=== PATIENT | female | born 1930 | race Caucasian/White ===

== ENCOUNTER 2017-04-13 14:26 | Inpatient (IN) | payer MEDICARE ==
[~2017-04-13] VITALS: Ht 162.6 cm; Wt 75.0 kg
[2017-04-13 14:49] VITALS: BP 148/81; PULSE 69; RESP 16; TEMP 98.6; O2SAT 100
[2017-04-13] MEDS ORDERED: SODIUM CHLORID 0.9% 500 ML INJ 500 ML IV ONE (15:00)
[2017-04-13] MEDS ORDERED: SODIUM CHLORIDE 0.9% FLUSH 10 ML FLUSH IVF PRN (15:00)
--- NOTE | 2017-04-13 15:10 | PD ---
HPI Chief Complaint: Pain: Acute or Chronic Time Seen by Provider: 14:59 Travel History International Travel<30 days: Yes Contact w/Intl Traveler<30days: [place] of Country Traveled to: Traveled here from [place] Traveled to known affect area: Yes History of Present Illness HPI 86-year-old Irish female presents the emergency department via EMS with question of chest discomfort, shortness of breath, an episode of vomiting times one. Patient is a type II diabetic on metformin. She denies fever, chills, or abdominal pain. She denies urinary issues. EMS noted that her heart rate was 42 in the rig, and she was given atropine IV with improvement of her rate with what appeared to be an irregular rhythm. Patient has received a total of 900 mL of normal saline bolus. She is alert and oriented this time. She states her pain is located mainly in the right shoulder. She describes it as a 7 out of 10. Further history is difficult to obtain. She has no known drug allergies. Patient was seen in conjunction with Jose Miguel Maldonado PA-C last the patient her history in more detail in [place]ese. Patient states she has a long-standing history of bradycardia, and was recommended to have a pacemaker in [place] but she refused at that time. She states her pain is about a 5/10 which she describes as an ache in the pericardium. She has had some nausea and vomiting 1. The patient did have diarrhea a little bit this morning. She has no previous cardiac history other than the bradycardia. Patient denies urinary symptoms or significant abdominal pain. PFSH Past Medical History ?: Not Social History Alcohol Use: No Tobacco Use: No Substance Use: No Allergies-Medications (Allergen,Severity, Reaction): Coded Allergies: No Known Allergies (Unverified , 04/13/17) Review of Systems Except as stated in HPI: all other systems reviewed are Neg General / Constitutional: No: Fever Eyes: No: Visual changes HENT: No: Headaches Cardiovascular: Positive: Chest Pain or Discomfort, Other (bradycardia), No: Diaphoresis Respiratory: No: Shortness of Breath Gastrointestinal: Positive: Nausea, Vomiting (times one.), No: Abdominal Pain Genitourinary: No: Dysuria Musculoskeletal: No: Pain Skin: No Rash Neurologic: No: Weakness Psychiatric: No: Depression Endocrine: No: Polydipsia Hematologic/Lymphatic: No: Easy Bruising Physical Exam Narrative GENERAL: Patient appears in no acute distress SKIN: Warm and dry. Normal color. Normal turgor. HEAD: Atraumatic. Normocephalic. EYES: Pupils equal and round. No scleral icterus. No injection or drainage. ENT: No nasal bleeding or discharge. Mucous membranes pink and moist. Pharynx is clear. Airways patent. NECK: Trachea midline. No JVD. Supple nontender. CARDIOVASCULAR: Somewhat irregular rate and rhythm. No murmurs appreciated. RESPIRATORY: No accessory muscle use. Clear to auscultation. Breath sounds equal bilaterally. GASTROINTESTINAL: Abdomen soft, non-tender, nondistended. Hepatic and splenic margins not palpable. MUSCULOSKELETAL: Extremities without clubbing, cyanosis, or edema. No obvious deformities. NEUROLOGICAL: Awake and alert. No obvious cranial nerve deficits. Motor grossly within normal limits. Five out of 5 muscle strength in the arms and legs. Normal speech. PSYCHIATRIC: Appropriate mood and affect; insight and judgment normal. Data Data Last Documented VS Vital Signs Date Time Temp Pulse Resp B/P Pulse Ox O2 Delivery O2 Flow Rate FiO2 04/13/17 16:50 47 16 152/69 100 Room Air 04/13/17 14:49 98.6 Orders Electrocardiogram (04/13/17 14:49) Complete Blood Count With Diff (04/13/17 14:49) Comprehensive Metabolic Panel (04/13/17 14:49) Magnesium (Mg) (04/13/17 14:49) Phosphorus (Po4) (04/13/17 14:49) Beta Hydroxybutyrate (Acetone) (04/13/17 14:49) Osmolality,Serum (04/13/17 14:49) Lactic Acid (04/13/17 14:49) Urinalysis - C+S If Indicated (04/13/17 14:49) Chest, Single Ap (04/13/17 14:49) Ecg Monitoring (04/13/17 14:49) Iv Access Insert/Monitor (04/13/17 14:49) Oximetry (04/13/17 14:49) NPO (04/13/17 14:49) Sodium Chloride 0.9% Flush (Ns Flush) (04/13/17 15:00) Troponin I (04/13/17 14:49) Lipase (04/13/17 14:49) Sodium Chlorid 0.9% 500 Ml Inj (Ns 500 M (04/13/17 15:00) Ondansetron Inj (Zofran Inj) (04/13/17 15:15) Labs Laboratory Tests Test 04/13/17 15:00 White Blood Count 8.1 TH/MM3 Red Blood Count 4.71 MIL/MM3 Hemoglobin 13.7 GM/DL Hematocrit 41.0 % Mean Corpuscular Volume 86.9 FL Mean Corpuscular Hemoglobin 29.0 PG Mean Corpuscular Hemoglobin 33.4 % Concent Red Cell Distribution Width 14.3 % Platelet Count 170 TH/MM3 Mean Platelet Volume 11.2 FL Neutrophils (%) (Auto) 77.9 % Lymphocytes (%) (Auto) 16.9 % Monocytes (%) (Auto) 4.0 % Eosinophils (%) (Auto) 0.4 % Basophils (%) (Auto) 0.8 % Neutrophils # (Auto) 6.3 TH/MM3 Lymphocytes # (Auto) 1.4 TH/MM3 Monocytes # (Auto) 0.3 TH/MM3 Eosinophils # (Auto) 0.0 TH/MM3 Basophils # (Auto) 0.1 TH/MM3 CBC Comment DIFF FINAL Differential Comment Sodium Level 136 MEQ/L Potassium Level 4.5 MEQ/L Chloride Level 101 MEQ/L Carbon Dioxide Level 27.5 MEQ/L Anion Gap 8 MEQ/L Blood Urea Nitrogen 18 MG/DL Creatinine 0.65 MG/DL Estimat Glomerular Filtration 87 ML/MIN Rate Random Glucose 297 MG/DL Serum Osmolality 299 MOSM/KG Lactic Acid Level 1.3 mmol/L Calcium Level 8.5 MG/DL Phosphorus Level 3.3 MG/DL Magnesium Level 1.7 MG/DL Total Bilirubin 0.3 MG/DL Aspartate Amino Transf 12 U/L (AST/SGOT) Alanine Aminotransferase 15 U/L (ALT/SGPT) Alkaline Phosphatase 79 U/L Troponin I LESS THAN 0.02 NG/ML Total Protein 6.7 GM/DL Albumin 3.2 GM/DL Lipase 93 U/L B-Hydroxybutyrate 0.16 MMOL/L [facility] Medical Decision Making Medical Screen Exam Complete: Yes Emergency Medical Condition: Yes Differential Diagnosis Hyperglycemia. Electrolyte imbalance. Bradycardia. Cardiac syndrome. MA. Pancreatitis. Nausea and vomiting. Narrative Course Patient appears medically stable at time of exam. Labs ordered including CBC, CMP, lipase, lactic acid, magnesium and phosphorus, urinalysis. EKG is performed as well as chest x-ray. Patient is given 500 mL normal saline bolus as well as Zofran 4 mg IV. Chest x-ray shows no acute findings. EKG shows sinus rhythm with first AV block with a rate of [address] changes are noted. This is reviewed with Dr. Browning. 1300 hrs., patient's heart rate is noted to be 48 bpm and regular. She is not complaining of any symptoms at this time. Labs are reviewed showing a blood sugar of 279. Patient has not however in ketoacidosis. Labs are otherwise unremarkable. Patient is discussed with Dr. Browning feels the patient should be admitted for further cardiac workup, and possible pacemaker placement per gunner's mate m. 1700 hrs. call was placed to the hospitalist for admission. Diagnosis Primary Impression: Chest pain Qualified Code: R07.9 - Chest pain, unspecified type Additional Impressions: Bradycardia Hyperglycemia Condition: Stable Aroldo Pardo Apr 13, 2017 15:10
[2017-04-13 15:13] VITALS: O2SAT 100
[2017-04-13] MEDS ORDERED: ONDANSETRON HCL 4 MG/2 ML VIAL IV PUSH ONE (15:15)
--- NOTE | 2017-04-13 15:33 | RADRPT ---
EXAM DATE/TIME: 04/13/2017 15:04 [place] COMPARISON: No previous studies available for comparison. INDICATIONS : Vomiting, low blood pressure, chest pain. MEDICAL HISTORY : None. SURGICAL HISTORY : None. ENCOUNTER: Initial ACUITY: 1 day PAIN SCORE: 2/10 LOCATION: Bilateral chest FINDINGS: A single view of the chest demonstrates the lungs to be symmetrically aerated without evidence of mas s, infiltrate or effusion. The cardiomediastinal contours are unremarkable. Osseous structures are intact. CONCLUSION: No acute disease. Sergio Bowen Jr., MD on April 13, 2017 at 15:31 Board Certified Radiologist. This report was verified electronically.
[2017-04-13 16:05] LABS: AUTOMATED NEUTROPHIL # 6.3 TH/MM3 (1.8-7.7); BASOPHIL # 0.1 TH/MM3 (0-0.2); BASOPHIL % 0.8 % (0.0-2.0); EOSINOPHIL % 0.4 % (0.0-4.0); HEMO FLAGS DIFF FINAL; LYMPH % 16.9 % (9.0-44.0); LYMPHOCYTE # 1.4 TH/MM3 (1.0-4.8); MEAN CELL VOLUME 86.9 FL (80.0-100.0); MEAN CORPUSCULAR HGB CONC 33.4 % (32.0-36.0); NEUT % 77.9 % (16.0-70.0); PLATELET COUNT 170 TH/MM3 (150-450); RED BLOOD COUNT 4.71 MIL/MM3 (4.00-5.30); RED CELL DISTRIBUTION WIDTH 14.3 % (11.6-17.2); WHITE BLOOD COUNT 8.1 TH/MM3 (4.0-11.0)
[2017-04-13 16:37] LABS: ALT (GPT) 15 U/L (10-53); ANION GAP 8 MEQ/L (5-15); AST (GOT) 12 U/L (15-37); BICARBONATE 27.5 MEQ/L (21.0-32.0); BLOOD UREA NITROGEN 18 MG/DL (7-18); CHLORIDE 101 MEQ/L (98-107); GLOMERULAR FILTRATION RATE 87 ML/MIN (>89); MAGNESIUM 1.7 MG/DL (1.5-2.5); POTASSIUM 4.5 MEQ/L (3.5-5.1); SODIUM (NA) 136 MEQ/L (136-145)
[2017-04-13 16:40] LABS: ALKALINE PHOSPHATASE 79 U/L (45-117); BETA-HYDROXYBUTYRATE 0.16 MMOL/L (0.00-0.39); TOTAL BILIRUBIN ADULT 0.3 MG/DL (0.2-1.0)
[2017-04-13 16:50] VITALS: BP 152/69; PULSE 47; RESP 16; O2SAT 100
[2017-04-13 18:26] VITALS: BP 143/77; PULSE 50; RESP 16; O2SAT 100
[2017-04-13] MEDS ORDERED: NALOXONE HCL 0.4 MG/ML AMP IV PRN ×2 (18:45)
[2017-04-13] MEDS ORDERED: ACETAMINOPHEN 325 MG TAB PO PRN (18:45)
[2017-04-13] MEDS ORDERED: RESP: ALBUTEROL 2.5 MG/IPRATROPIUM 0.5 MG NEB (PRN) NEB (18:45)
[2017-04-13] MEDS ORDERED: MAGNESIUM HYDROXIDE SUSP 30 ML CUP PO PRN (18:45)
[2017-04-13] MEDS ORDERED: TEMAZEPAM 15 MG CAP PO PRN (18:45)
[2017-04-13] MEDS ORDERED: DEXTROSE 50% IN WATER 50 ML VIAL(D50) IV PRN (18:45)
[2017-04-13] MEDS ORDERED: GLUCAGON 1 MG/ML VIAL OTHER PRN (18:45)
[2017-04-13] MEDS ORDERED: SODIUM CHLORIDE 0.9% FLUSH 10 ML FLUSH IV FLUSH PRN (18:45)
--- NOTE | 2017-04-13 18:49 | HHI.HP ---
[facility] No Primary Care Physician Admission Diagnosis Chest Pain/Bradycardia/Hyperglycemia Diagnoses: (1) Bradycardia (2) Chest pain (3) DM (diabetes mellitus) Chief Complaint: Chest pain Travel History International Travel<30 Days: Yes Contact w/Intl Traveler <30 Da: Yes Name of Country Traveled to: [place] Traveled to Known Affected Are: Yes History of Present Illness 86-year-old female was brought to the ED by EMS for evaluation of chest discomfort for as well as shortness of breath. Patient was noted at a time to have a heart rate of 42 for which she was given atropine IV 1. She described her chest to be located mainly to the right shoulder and 7/10 in intensity. She has a long-standing history of bradycardia for which about a month ago while patient was in [place] a recommendation of pacemaker placement was advised to which patient refused a time. She also presented initially with nausea and vomiting which resolved. Per EMR, patient had one episode of diarrhea. She currently denies any chest pain or abdominal pain. Review of Systems Except as stated in HPI: all other systems reviewed are Neg Past Family Social History Past Medical History Diabetes type 2 History bradycardia Past Surgical History No previous surgery Reported Medications Metformin Allergies: Coded Allergies: No Known Allergies (Unverified , 04/13/17) Family History Denies any family history of heart disease Social History Alcohol Use: No Tobacco Use: No Substance Use: No Physical Exam Vital Signs Vital Signs Date Time Temp Pulse Resp B/P Pulse Ox O2 Delivery O2 Flow Rate FiO2 04/13/17 18:26 50 16 143/77 100 Room Air 04/13/17 16:50 47 16 152/69 100 Room Air 04/13/17 15:13 100 04/13/17 14:49 98.6 69 16 148/81 100 Physical Exam GENERAL: This is a well-nourished, well-developed patient, in no apparent distress. SKIN: No rashes, ecchymoses or lesions. Cool and dry. HEAD: Atraumatic. Normocephalic. No temporal or scalp tenderness. EYES: Pupils equal round and reactive. Extraocular motions intact. No scleral icterus. No injection or drainage. ENT: Nose without bleeding, purulent drainage or septal hematoma. Throat without erythema, tonsillar hypertrophy or exudate. Uvula midline. Airway patent. NECK: Trachea midline. No JVD or lymphadenopathy. Supple, nontender, no meningeal signs. CARDIOVASCULAR: Regular rate and rhythm without murmurs, gallops, or rubs. RESPIRATORY: Clear to auscultation. Breath sounds equal bilaterally. No wheezes , rales, or rhonchi. GASTROINTESTINAL: Abdomen soft, non-tender, nondistended. No hepato-splenomegaly , or palpable masses. No guarding. MUSCULOSKELETAL: Extremities without clubbing, cyanosis, or edema. No joint tenderness, effusion, or edema noted. No calf tenderness. Negative Homans sign bilaterally. NEUROLOGICAL: Awake and alert. Cranial nerves II through XII intact. Motor and sensory grossly within normal limits. Five out of 5 muscle strength in all muscle groups. Normal speech. Laboratory Laboratory Tests Test 04/13/17 15:00 White Blood Count 8.1 Red Blood Count 4.71 Hemoglobin 13.7 Hematocrit 41.0 Mean Corpuscular Volume 86.9 Mean Corpuscular Hemoglobin 29.0 Mean Corpuscular Hemoglobin 33.4 Concent Red Cell Distribution Width 14.3 Platelet Count 170 Mean Platelet Volume 11.2 Neutrophils (%) (Auto) 77.9 Lymphocytes (%) (Auto) 16.9 Monocytes (%) (Auto) 4.0 Eosinophils (%) (Auto) 0.4 Basophils (%) (Auto) 0.8 Neutrophils # (Auto) 6.3 Lymphocytes # (Auto) 1.4 Monocytes # (Auto) 0.3 Eosinophils # (Auto) 0.0 Basophils # (Auto) 0.1 CBC Comment DIFF FINAL Differential Comment Sodium Level 136 Potassium Level 4.5 Chloride Level 101 Carbon Dioxide Level 27.5 Anion Gap 8 Blood Urea Nitrogen 18 Creatinine 0.65 Estimat Glomerular Filtration 87 Rate Random Glucose 297 Serum Osmolality 299 Lactic Acid Level 1.3 Calcium Level 8.5 Phosphorus Level 3.3 Magnesium Level 1.7 Total Bilirubin 0.3 Aspartate Amino Transf 12 (AST/SGOT) Alanine Aminotransferase 15 (ALT/SGPT) Alkaline Phosphatase 79 Troponin I LESS THAN 0.02 Total Protein 6.7 Albumin 3.2 Lipase 93 B-Hydroxybutyrate 0.16 Result Diagram: 04/13/17 1500 04/13/17 1500 Assessment and Plan Problem List: (1) Bradycardia ICD Code: R00.1 Status: Acute (2) Chest pain ICD Code: R07.9 Status: Acute (3) DM (diabetes mellitus) ICD Code: E11.9 Status: Acute Assessment and Plan 86-year-old female with Symptomatic bradycardia Status post Atropine x 1 Consult cardiology for evaluation for pacemaker versus AICD placement Check 2-D echo and rule out ACS per protocol Atypical chest pain Likely secondary to above processes ACS ruled out per protocol with serial cardiac enzyme 2-D echo pending Hypertension Beta cj contraindicated Start Norvasc 5 mg daily 04/14/17 Diabetes type 2-uncontrolled Start insulin sliding scale Check hemoglobin A1c DVT prophylaxis: Bilateral SCDs Code Status Full code Discussed Condition With Patient, ED physician Physician Certification 2 Midnight Certification Type: Admission for Inpatient Services Order for Inpatient Services The services are ordered in accordance with Medicare regulations or non- Medicare payer requirements, as applicable. In the case of services not specified as inpatient-only, they are appropriately provided as inpatient services in accordance with the 2-midnight benchmark. Estimated LOS (days): 2 days is the estimated time the patient will need to remain in the hospital, assuming treatment plan goals are met and no additional complications. Post-Hospital Plan: Not yet determined Problem Qualifiers (1) Chest pain: Qualified Code: R07.9 - Chest pain, unspecified type Carlos Caldwell MD Apr 13, 2017 18:49
[2017-04-13 19:02] VITALS: BP 140/63; PULSE 46; RESP 18; O2SAT 99
[2017-04-13] MEDS ORDERED: METF1000 PO (21:17)
[2017-04-13] MEDS ORDERED: ENAL5TAB PO (21:17)
[2017-04-13] MEDS: SODIUM CHLORIDE 0.9% FLUSH 10 ML FLUSH IV FLUSH SCH (21:41)
[2017-04-13] MEDS: INSULIN ASPART SUPPLEMENTAL SCALE SQ SCH (21:42)
[2017-04-13 22:56] LABS: BACTERIA, URINE RARE /hpf; BLOOD, URINE NEG (NEG); COMMENT (UR) CULT NOT INDICATED; CULTURE IF INDICATED CULT NOT INDICATED; GLUCOSE,URINE 1000 mg/dL (NEG); HYALINE CAST, URINE 4 /lpf (RARE); KETONE, URINE NEG (NEG); MUCUS URINE FEW /lpf (OCC); NITRITE,URINE NEG (NEG); SQUAMOUS EPITHELIAL CELL URINE <1 /hpf (0-5); URINE COLOR LIGHT-YELLOW (YELLW/STRAW)
[2017-04-13 23:08] LABS: CREATINE KINASE 32 U/L (26-192)
[2017-04-13 23:54] VITALS: PULSE 49
[2017-04-14 03:11] VITALS: BP 134/62; PULSE 56; RESP 18; TEMP 98.1; O2SAT 96
[2017-04-14 03:53] LABS: CREATINE KINASE 34 U/L (26-192)
[2017-04-14] MEDS: ONDANSETRON HCL 4 MG/2 ML VIAL IVP PRN ×2 (06:14→23:14)
[2017-04-14] MEDS: INSULIN ASPART SUPPLEMENTAL SCALE SQ SCH ×4 (06:22→21:20)
[2017-04-14 07:19] VITALS: BP 135/63; PULSE 53; RESP 16; TEMP 98.3; O2SAT 96
[2017-04-14 07:39] LABS: AUTOMATED NEUTROPHIL # 5.2 TH/MM3 (1.8-7.7); BASOPHIL # 0.1 TH/MM3 (0-0.2); BASOPHIL % 0.8 % (0.0-2.0); EOSINOPHIL # 0.1 TH/MM3 (0-0.4); HEMATOCRIT 41.7 % (35.0-46.0); HEMO FLAGS DIFF FINAL; LYMPH % 21.2 % (9.0-44.0); LYMPHOCYTE # 1.5 TH/MM3 (1.0-4.8); MEAN CELL VOLUME 85.8 FL (80.0-100.0); MEAN CORPUSCULAR HEMOGLOBIN 29.2 PG (27.0-34.0); MONO % 4.9 % (0.0-8.0); NEUT % 72.1 % (16.0-70.0); PLATELET COUNT 157 TH/MM3 (150-450); RED BLOOD COUNT 4.86 MIL/MM3 (4.00-5.30); RED CELL DISTRIBUTION WIDTH 14.7 % (11.6-17.2); WHITE BLOOD COUNT 7.2 TH/MM3 (4.0-11.0)
[2017-04-14 08:08] LABS: ANION GAP 10 MEQ/L (5-15); AST (GOT) 12 U/L (15-37); BICARBONATE 27.1 MEQ/L (21.0-32.0); BLOOD UREA NITROGEN 12 MG/DL (7-18); CHLORIDE 103 MEQ/L (98-107); GLOMERULAR FILTRATION RATE 101 ML/MIN (>89); POTASSIUM 3.7 MEQ/L (3.5-5.1); SODIUM (NA) 140 MEQ/L (136-145)
[2017-04-14] MEDS: amLODIPine BESYLATE 5 MG TAB PO SCH (08:16)
[2017-04-14] MEDS: SODIUM CHLORIDE 0.9% FLUSH 10 ML FLUSH IV FLUSH SCH ×2 (08:16→21:20)
[2017-04-14 08:19] LABS: ALKALINE PHOSPHATASE 71 U/L (45-117); ALT (GPT) 14 U/L (10-53); TOTAL BILIRUBIN ADULT 0.4 MG/DL (0.2-1.0)
[2017-04-14] MEDS: ACETAMINOPHEN 325 MG TAB PO PRN ×2 (08:24→23:14)
--- NOTE | 2017-04-14 09:19 | PD.CONS ---
HPI Service cardiology Consult Requested By Reason for Consult chest pain, bradycardia Primary Care Physician No Primary Care Physician History of Present Illness 86 yo lebanese-speaking F with history of diabetes, HTN and known bradycardia admitted for chest pain and bradycardia. She apparently felt an episode of anterior chest pain yesterday at home along with nausea, vomiting and diarrhea. EMS was called and found her HR to be 42, atropine IV x 1 administered with improved rate. ECG showed no concerning ST changes, troponin negative. Currently feeling well with no chest pain, SOB or palpitations. (Morena Godwin) Review of Systems Consitutional: DENIES: Fatigue, Fever, Chills, Weight gain Respiratory: DENIES: Cough, Wheezing, Sputum production Cardiovascular: DENIES: Palpitations, Syncope, Tachycardia Gastrointestinal: DENIES: Change in bowel habits, Reflux, Bloody stools, Melena (Morena Godwin) Past Family Social History Allergies: Coded Allergies: No Known Allergies (Unverified , 04/13/17) Past Medical History Diabetes type 2 History bradycardia Past Surgical History No previous surgery Reported Medications Reported Meds & Active Scripts Active Reported Enalapril (Enalapril Maleate) 5 Mg Tab 5 Mg PO DAILY Metformin (Metformin HCl) 1,000 Mg Tab 1,000 Mg PO BIDPC With meals Active Ordered Medications Current Medications Medications (Trade) Dose Ordered Sig/Kathy Route Start Time Stop Time Status Last Admin (NS Flush) 2 ml UNSCH PRN IV FLUSH 04/13/17 18:45 04/14/17 06:14 (NS Flush) 2 ml BID IV FLUSH 04/13/17 21:00 04/14/17 08:16 (Tylenol) 650 mg Q4H PRN PO 04/13/17 18:45 (Zofran Inj) 4 mg Q6H PRN IVP 04/13/17 18:45 04/14/17 06:14 (Restoril) 15 mg HS PRN PO 04/13/17 18:45 (Tylenol) 650 mg Q6H PRN PO 04/13/17 18:45 04/14/17 08:24 (Milk Of Magnesia Liq) 30 ml Q12H PRN PO 04/13/17 18:45 (Norvasc) 5 mg DAILY PO 04/14/17 09:00 04/14/17 08:16 (D50w (Vial) Inj) 50 ml UNSCH PRN IV 04/13/17 18:45 (Glucagon Inj) 1 mg UNSCH PRN OTHER 04/13/17 18:45 (Narcan Inj) 0.4 mg UNSCH PRN IV 04/13/17 18:45 Family History Denies any family history of heart disease Social History no etoh, no ilicit drug use, non-smoker (Morena Godwin) Physical Exam Vital Signs Vital Signs Date Time Temp Pulse Resp B/P Pulse Ox O2 Delivery O2 Flow Rate FiO2 04/14/17 07:19 98.3 53 16 135/63 96 04/14/17 03:11 98.1 56 18 134/62 96 04/13/17 23:54 49 04/13/17 19:02 46 18 140/63 99 Nasal Cannula 2 04/13/17 18:26 50 16 143/77 100 Room Air 04/13/17 16:50 47 16 152/69 100 Room Air 04/13/17 15:13 100 04/13/17 14:49 98.6 69 16 148/81 100 Physical Exam HEAD: Atraumatic. Normocephalic. EYES: Pupils equal and round. ENT: No nasal bleeding or discharge. NECK: Trachea midline. No JVD. CARDIOVASCULAR: Regular rate and rhythm. No mumurs RESPIRATORY: No accessory muscle use. Clear to auscultation. Breath sounds equal bilaterally. GASTROINTESTINAL: Abdomen soft, non-tender, nondistended. MUSCULOSKELETAL: Extremities without clubbing, cyanosis, or edema. No obvious deformities. NEUROLOGICAL: Awake and alert. No obvious cranial nerve deficits. Normal speech. PSYCHIATRIC: Appropriate mood and affect; insight and judgment normal. Laboratory Laboratory Tests Test 04/13/17 04/13/17 04/13/17 04/14/17 15:00 21:16 21:34 03:11 White Blood Count 8.1 Red Blood Count 4.71 Hemoglobin 13.7 Hematocrit 41.0 Mean Corpuscular Volume 86.9 Mean Corpuscular Hemoglobin 29.0 Mean Corpuscular Hemoglobin 33.4 Concent Red Cell Distribution Width 14.3 Platelet Count 170 Mean Platelet Volume 11.2 Neutrophils (%) (Auto) 77.9 Lymphocytes (%) (Auto) 16.9 Monocytes (%) (Auto) 4.0 Eosinophils (%) (Auto) 0.4 Basophils (%) (Auto) 0.8 Neutrophils # (Auto) 6.3 Lymphocytes # (Auto) 1.4 Monocytes # (Auto) 0.3 Eosinophils # (Auto) 0.0 Basophils # (Auto) 0.1 CBC Comment DIFF FINAL Differential Comment Sodium Level 136 Potassium Level 4.5 Chloride Level 101 Carbon Dioxide Level 27.5 Anion Gap 8 Blood Urea Nitrogen 18 Creatinine 0.65 Estimat Glomerular Filtration 87 Rate Random Glucose 297 Serum Osmolality 299 Lactic Acid Level 1.3 Calcium Level 8.5 Phosphorus Level 3.3 Magnesium Level 1.7 Total Bilirubin 0.3 Aspartate Amino Transf 12 (AST/SGOT) Alanine Aminotransferase 15 (ALT/SGPT) Alkaline Phosphatase 79 Troponin I LESS THAN 0.02 LESS THAN 0.02 LESS THAN 0.02 Total Protein 6.7 Albumin 3.2 Lipase 93 B-Hydroxybutyrate 0.16 Urine Color LIGHT-YELLOW Urine Turbidity CLEAR Urine pH 5.0 Urine Specific [place] 1.012 Urine Protein NEG Urine Glucose (UA) 1000 Urine Ketones NEG Urine Occult Blood NEG Urine Nitrite NEG Urine Bilirubin NEG Urine Urobilinogen LESS THAN 2.0 Urine Leukocyte Esterase NEG Urine RBC LESS THAN 1 Urine WBC LESS THAN 1 Urine Squamous Epithelial <1 Cells Urine Bacteria RARE Urine Hyaline Casts 4 Urine Mucus FEW Microscopic Urinalysis Comment CULT NOT INDICATED Total Creatine Kinase 32 34 Test 04/14/17 06:51 White Blood Count 7.2 Red Blood Count 4.86 Hemoglobin 14.2 Hematocrit 41.7 Mean Corpuscular Volume 85.8 Mean Corpuscular Hemoglobin 29.2 Mean Corpuscular Hemoglobin 34.0 Concent Red Cell Distribution Width 14.7 Platelet Count 157 Mean Platelet Volume 11.4 Neutrophils (%) (Auto) 72.1 Lymphocytes (%) (Auto) 21.2 Monocytes (%) (Auto) 4.9 Eosinophils (%) (Auto) 1.0 Basophils (%) (Auto) 0.8 Neutrophils # (Auto) 5.2 Lymphocytes # (Auto) 1.5 Monocytes # (Auto) 0.4 Eosinophils # (Auto) 0.1 Basophils # (Auto) 0.1 CBC Comment DIFF FINAL Differential Comment Sodium Level 140 Potassium Level 3.7 Chloride Level 103 Carbon Dioxide Level 27.1 Anion Gap 10 Blood Urea Nitrogen 12 Creatinine 0.57 Estimat Glomerular Filtration 101 Rate Random Glucose 171 Calcium Level 9.1 Total Bilirubin 0.4 Aspartate Amino Transf 12 (AST/SGOT) Alanine Aminotransferase 14 (ALT/SGPT) Alkaline Phosphatase 71 Total Protein 6.8 Albumin 3.2 (Morena Godwin) Result Diagram: 04/14/17 0651 04/14/17 0651 Imaging Last Impressions Chest X-Ray 04/13/17 1449 Signed Impressions: Service Date/Time: Thursday, April 13, 2017 15:04 - CONCLUSION: No acute disease. Sergio Bowen Jr., MD (Morena Godwin) Assessment and Plan Problem List: (1) Bradycardia (2) Chest pain Assessment and Plan atypical chest pain- ECG shows no concerning ST changes and serial troponins negative. Symptoms along with N/V have resolved. lexiscan to evaluate for ischemia. bradycardia- apparently has had long-standing bradycardia was advised to have PM placed when last in [place] but declined. Review of tele shows HR fluctuates 47-53. echo pending HTN- improved with addition of amlodipine (Morena Godwin) Assessment and Plan lexiscan today (Bj Ariza MD) Problem Qualifiers (1) Chest pain: Qualified Code: R07.9 - Chest pain, unspecified type Morena Godwin Apr 14, 2017 09:19 Bj Ariza MD Apr 14, 2017 12:11
--- NOTE | 2017-04-14 10:18 | HHI.PR ---
Subjective Remarks Follow-up bradycardia/chest pain 04/14/17-patient seen and examined, denies any chest pain however complains of right shoulder pain. Improvement of emesis however patient still with nausea. BP stable. Heart rate 46-53 Objective Vitals Vital Signs Date Time Temp Pulse Resp B/P Pulse Ox O2 Delivery O2 Flow Rate FiO2 04/14/17 07:19 98.3 53 16 135/63 96 04/14/17 03:11 98.1 56 18 134/62 96 04/13/17 23:54 49 04/13/17 19:02 46 18 140/63 99 Nasal Cannula 2 04/13/17 18:26 50 16 143/77 100 Room Air 04/13/17 16:50 47 16 152/69 100 Room Air 04/13/17 15:13 100 04/13/17 14:49 98.6 69 16 148/81 100 Result Diagram: 04/14/17 0651 04/14/17 0651 Imaging Last Impressions Chest X-Ray 04/13/17 1449 Signed Impressions: Service Date/Time: Thursday, April 13, 2017 15:04 - CONCLUSION: No acute disease. Sergio Bowen Jr., MD Objective Remarks GENERAL: NAD SKIN: Warm and dry. HEAD: Normocephalic. EYES: No scleral icterus. No injection or drainage. NECK: Supple, trachea midline. No JVD or lymphadenopathy. CARDIOVASCULAR: Regular rate and rhythm without murmurs, gallops, or rubs. RESPIRATORY: Breath sounds equal bilaterally. No accessory muscle use. GASTROINTESTINAL: Abdomen soft, non-tender, nondistended. MUSCULOSKELETAL: No cyanosis, or edema. BACK: Nontender without obvious deformity. No CVA tenderness. A/P Problem List: (1) Bradycardia ICD Code: R00.1 Status: Acute (2) Chest pain ICD Code: R07.9 Status: Acute (3) DM (diabetes mellitus) ICD Code: E11.9 Status: Acute Assessment and Plan 86-year-old female with Symptomatic bradycardia Status post Atropine x 1 04/13/17 Appreciate input from cardiology for evaluation for pacemaker versus AICD placement 2-D echo pending Consider nuclear stress test Atypical chest pain Likely secondary to above processes ACS ruled out per protocol with serial cardiac enzyme 2-D echo pending Consider Nuclear stress test Hypertension-normotensive Beta cj contraindicated Continue Norvasc 5 mg daily 04/14/17 Diabetes type 2-uncontrolled Continue insulin sliding scale hemoglobin A1c pending DVT prophylaxis: Bilateral SCDs Problem Qualifiers (1) Chest pain: Qualified Code: R07.9 - Chest pain, unspecified type Carlos Caldwell MD Apr 14, 2017 10:18
[2017-04-14 11:22] VITALS: BP 121/59; PULSE 52; RESP 16; TEMP 97.6; O2SAT 96
--- NOTE | 2017-04-14 11:50 | EKG ---
Date Performed: 04/13/2017 Time Performed: 15:00:20 PTAGE: 86 years EKG: Sinus rhythm WITH SINUS ARRHYTHMIA BORDERLINE LEFT AXIS DEVIATION MODERATE VOLTAGE CRITERIA FOR LVH, CONSIDER NOR MAL VARIANT BORDERLINE ECG NO PREVIOUS TRACING DOCTOR: Zack Cee Interpretating Date/Time 04/14/2017 11:48:03
--- NOTE | 2017-04-14 11:55 | EKG ---
Date Performed: 04/13/2017 Time Performed: 21:32:23 PTAGE: 86 years EKG: SINUS BRADYCARDIA WITH SINUS ARRHYTHMIA POSSIBLE LATERAL MYOCARDIAL INFARCTION BORDERLINE E CG PREVIOUS TRACING : 04/13/2017 15.00 Compared to prior tracing no significant change DOCTOR: Zack Cee Interpretating Date/Time 04/14/2017 11:54:01
--- NOTE | 2017-04-14 11:56 | EKG ---
Date Performed: 04/14/2017 Time Performed: 03:19:45 PTAGE: 86 years EKG: SINUS BRADYCARDIA BORDERLINE LEFT AXIS DEVIATION MODERATE INTRAVENTRICULAR CONDUCTION DELAY MINIMAL VOLTAGE CRITERIA FOR LVH, CONSIDER NORMAL VARIANT BORDERLINE ECG PREVIOUS TRACING : 04/13/2017 21.32 Compared to prior tracing no significant change DOCTOR: Zack Cee Interpretating Date/Time 04/14/2017 11:54:11
[2017-04-14 13:47] VITALS: PULSE 61
[2017-04-14 15:17] VITALS: BP 115/56; PULSE 52; RESP 18; TEMP 98; O2SAT 93
[2017-04-14 16:47] LABS: HEMOGLOBIN A1a 1.3 %; HEMOGLOBIN Ao 75.8 %; HEMOGLOBIN F 1.9 %; HEMOGLOBIN LA1C 2.4 %; HEMOGLOBIN P3 4.6 %
[2017-04-14 20:54] VITALS: BP 161/97; PULSE 55; RESP 18; TEMP 98.1; O2SAT 98
[2017-04-15] VITALS (11 sets, daily range): BP systolic 113–152; BP diastolic 57–70; PULSE 50–81; RESP 16–20; TEMP 98–98.8; O2SAT 95–99
[2017-04-15] MEDS: INSULIN ASPART SUPPLEMENTAL SCALE SQ SCH ×4 (06:14→21:11)
--- NOTE | 2017-04-15 09:05 | PD.CARD.PN ---
Subjective Subjective Remarks admits to mild nausea. denies chest pain or sob. Objective Medications Current Medications Medications (Trade) Dose Ordered Sig/Kathy Route Start Time Stop Time Status Last Admin (NS Flush) 2 ml UNSCH PRN IV FLUSH 04/13/17 18:45 04/14/17 06:14 (NS Flush) 2 ml BID IV FLUSH 04/13/17 21:00 04/14/17 21:20 (Tylenol) 650 mg Q4H PRN PO 04/13/17 18:45 (Zofran Inj) 4 mg Q6H PRN IVP 04/13/17 18:45 04/14/17 23:14 (Restoril) 15 mg HS PRN PO 04/13/17 18:45 (Tylenol) 650 mg Q6H PRN PO 04/13/17 18:45 04/14/17 23:14 (Milk Of Magnesia Liq) 30 ml Q12H PRN PO 04/13/17 18:45 (Norvasc) 5 mg DAILY PO 04/14/17 09:00 04/14/17 08:16 (D50w (Vial) Inj) 50 ml UNSCH PRN IV 04/13/17 18:45 (Glucagon Inj) 1 mg UNSCH PRN OTHER 04/13/17 18:45 (Narcan Inj) 0.4 mg UNSCH PRN IV 04/13/17 18:45 Vital Signs / I&O Vital Signs Date Time Temp Pulse Resp B/P Pulse Ox O2 Delivery O2 Flow Rate FiO2 04/15/17 05:56 52 04/15/17 05:00 98.8 64 20 128/60 98 04/15/17 00:10 98.1 52 18 117/58 99 04/14/17 20:54 98.1 55 18 161/97 98 04/14/17 15:17 98.0 52 18 115/56 93 04/14/17 13:47 61 04/14/17 11:22 97.6 52 16 121/59 96 I/O 04/14/17 04/14/17 04/14/17 04/15/17 04/15/17 04/15/17 07:00 15:00 23:00 07:00 15:00 23:00 Intake Total 720 ml Balance 720 ml Intake Oral 720 ml # Voids 1 4 Physical Exam HEAD: Atraumatic. Normocephalic. EYES: Pupils equal and round. ENT: No nasal bleeding or discharge. NECK: Trachea midline. No JVD. CARDIOVASCULAR: Regular rate and rhythm. + systolic murmur LUSB RESPIRATORY: No accessory muscle use. Clear to auscultation. Breath sounds equal bilaterally. GASTROINTESTINAL: Abdomen soft, non-tender, nondistended. MUSCULOSKELETAL: Extremities without clubbing, cyanosis, or edema. No obvious deformities. NEUROLOGICAL: Awake and alert. No obvious cranial nerve deficits. Normal speech. PSYCHIATRIC: Appropriate mood and affect; insight and judgment normal. Laboratory Laboratory Tests Test 04/13/17 04/13/17 04/14/17 04/14/17 15:00 21:16 03:11 06:51 Serum Osmolality 299 MOSM/KG Lactic Acid Level 1.3 mmol/L Phosphorus Level 3.3 MG/DL Magnesium Level 1.7 MG/DL Lipase 93 U/L B-Hydroxybutyrate 0.16 MMOL/L Urine Color LIGHT-YELLOW Urine Turbidity CLEAR Urine pH 5.0 Urine Specific [place] 1.012 Urine Protein NEG mg/dL Urine Glucose (UA) 1000 mg/dL Urine Ketones NEG mg/dL Urine Occult Blood NEG Urine Nitrite NEG Urine Bilirubin NEG Urine Urobilinogen LESS THAN 2.0 MG/DL Urine Leukocyte Esterase NEG Urine RBC LESS THAN 1 /hpf Urine WBC LESS THAN 1 /hpf Urine Squamous Epithelial <1 /hpf Cells Urine Bacteria RARE /hpf Urine Hyaline Casts 4 /lpf Urine Mucus FEW /lpf Microscopic Urinalysis Comment CULT NOT INDICATED Total Creatine Kinase 34 U/L Troponin I LESS THAN 0.02 NG/ML White Blood Count 7.2 TH/MM3 Red Blood Count 4.86 MIL/MM3 Hemoglobin 14.2 GM/DL Hematocrit 41.7 % Mean Corpuscular Volume 85.8 FL Mean Corpuscular Hemoglobin 29.2 PG Mean Corpuscular Hemoglobin 34.0 % Concent Red Cell Distribution Width 14.7 % Platelet Count 157 TH/MM3 Mean Platelet Volume 11.4 FL Neutrophils (%) (Auto) 72.1 % Lymphocytes (%) (Auto) 21.2 % Monocytes (%) (Auto) 4.9 % Eosinophils (%) (Auto) 1.0 % Basophils (%) (Auto) 0.8 % Neutrophils # (Auto) 5.2 TH/MM3 Lymphocytes # (Auto) 1.5 TH/MM3 Monocytes # (Auto) 0.4 TH/MM3 Eosinophils # (Auto) 0.1 TH/MM3 Basophils # (Auto) 0.1 TH/MM3 CBC Comment DIFF FINAL Differential Comment Sodium Level 140 MEQ/L Potassium Level 3.7 MEQ/L Chloride Level 103 MEQ/L Carbon Dioxide Level 27.1 MEQ/L Anion Gap 10 MEQ/L Blood Urea Nitrogen 12 MG/DL Creatinine 0.57 MG/DL Estimat Glomerular Filtration 101 ML/MIN Rate Random Glucose 171 MG/DL Hemoglobin A1c 12.5 % Calcium Level 9.1 MG/DL Total Bilirubin 0.4 MG/DL Aspartate Amino Transf 12 U/L (AST/SGOT) Alanine Aminotransferase 14 U/L (ALT/SGPT) Alkaline Phosphatase 71 U/L Total Protein 6.8 GM/DL Albumin 3.2 GM/DL Imaging Last Impressions Chest X-Ray 04/13/17 1449 Signed Impressions: Service Date/Time: Thursday, April 13, 2017 15:04 - CONCLUSION: No acute disease. Sergio Bowen Jr., MD Assessment and Plan Problem List: (1) Bradycardia (2) Chest pain Assessment and Plan atypical chest pain- asymptomatic currently. awaiting results of 2 day SPECT. +systolic murmur - echo pending bradycardia- HR remains in the 50's. No need for PPM at this time. Problem Qualifiers (1) Chest pain: Qualified Code: R07.9 - Chest pain, unspecified type Morena Godwin Apr 15, 2017 09:05
[2017-04-15] MEDS: amLODIPine BESYLATE 5 MG TAB PO SCH (09:11)
[2017-04-15] MEDS: SODIUM CHLORIDE 0.9% FLUSH 10 ML FLUSH IV FLUSH SCH ×2 (09:11→21:11)
--- NOTE | 2017-04-15 09:11 | HHI.PR ---
Subjective Remarks Follow-up bradycardia/chest pain 04/14/17-patient seen and examined, denies any chest pain however complains of right shoulder pain. Improvement of emesis however patient still with nausea. BP stable. Heart rate 46-53 04/15/17-patient seen and examined, denies any shortness of breath or chest pain. Still complaint of nausea but no emesis or abdominal pain. Heart rate still bradycardic. Awaiting results for 2 days SPECT Objective Vitals Vital Signs Date Time Temp Pulse Resp B/P Pulse Ox O2 Delivery O2 Flow Rate FiO2 04/15/17 05:56 52 04/15/17 05:00 98.8 64 20 128/60 98 04/15/17 00:10 98.1 52 18 117/58 99 04/14/17 20:54 98.1 55 18 161/97 98 04/14/17 15:17 98.0 52 18 115/56 93 04/14/17 13:47 61 04/14/17 11:22 97.6 52 16 121/59 96 I/O 04/14/17 04/14/17 04/14/17 04/15/17 04/15/17 04/15/17 07:00 15:00 23:00 07:00 15:00 23:00 Intake Total 720 ml Balance 720 ml Intake Oral 720 ml # Voids 1 4 Result Diagram: 04/14/17 0651 04/14/17 0651 Objective Remarks GENERAL: NAD SKIN: Warm and dry. HEAD: Normocephalic. EYES: No scleral icterus. No injection or drainage. NECK: Supple, trachea midline. No JVD or lymphadenopathy. CARDIOVASCULAR: Regular rate and rhythm with II/ KATHY RESPIRATORY: Breath sounds equal bilaterally. No accessory muscle use. GASTROINTESTINAL: Abdomen soft, non-tender, nondistended. MUSCULOSKELETAL: No cyanosis, or edema. BACK: Nontender without obvious deformity. No CVA tenderness. A/P Problem List: (1) Bradycardia ICD Code: R00.1 Status: Acute (2) Chest pain ICD Code: R07.9 Status: Acute (3) DM (diabetes mellitus) ICD Code: E11.9 Status: Acute Assessment and Plan 86-year-old female with Symptomatic bradycardia Status post Atropine x 1 04/13/17 Appreciate input from cardiology him a however at this point no evidence for need of PPM 2-D echo pending Awaiting results of 2 day SPECT Atypical chest pain Likely secondary to above processes ACS ruled out per protocol with serial cardiac enzyme 2-D echo pending Awaiting results of 2 day SPECT Hypertension-normotensive Beta cj contraindicated Continue Norvasc 5 mg daily 04/14/17 Diabetes type 2-uncontrolled Continue insulin sliding scale Hemoglobin A1c 12.5 DVT prophylaxis: Bilateral SCDs Problem Qualifiers (1) Chest pain: Qualified Code: R07.9 - Chest pain, unspecified type Carlos Caldwell MD Apr 15, 2017 09:11
[2017-04-15] MEDS: ONDANSETRON HCL 4 MG/2 ML VIAL IVP PRN (09:16)
[2017-04-15] MEDS: ACETAMINOPHEN 325 MG TAB PO PRN (09:16)
[2017-04-15 09:49] LABS: HDL CHOLESTEROL 68.8 MG/DL (40.0-60.0)
[2017-04-15] MEDS ORDERED: REGADENOSON INJ 0.4 MG/5 ML SYR ONE (09:55)
--- NOTE | 2017-04-15 11:24 | RADRPT ---
EXAM DATE/TIME: 04/14/2017 12:48 [facility] COMPARISON: No previous studies available for comparison. INDICATIONS : Anterior chest pain. Bradycardia. Angina. DOSE: 30.1 mCi Tc99m Myoview at stress. 8.1 mCi Tc99m Myoview at rest. 0.4 mg Lexiscan STRESS SYMPTOMS: None noted. EJECTION FRACTION: > 70% MEDICAL HISTORY : Diabetes mellitus type 2. SURGICAL HISTORY : None. ENCOUNTER: Initial ACUITY: 1 day PAIN SCALE: 2/10 LOCATION: Bilateral chest TECHNIQUE: The patient underwent pharmacologic stress with infusion of prescribed dose. Continuous ECG tracing was monitored during stress. Gated SPECT imaging was performed after stress and conventional SPECT i maging was performed at rest. The examination was performed on a SPECT/CT scanner, both attenuation and non-corrected datasets were reviewed. FINDINGS: DISTRIBUTION: The maximum perfused segment at stress is in the septum. PERFUSION STUDY: The pattern of perfusion at stress is within normal limits. GATED STUDY: There is intact wall motion and thickening without hypokinetic or dyskinetic segments. CONCLUSION: Normal examination. RISK CATEGORY: Low (<1% Annual Mortality Rate) Norris Zhang MD on April 15, 2017 at 11:18 Board Certified Radiologist. This report was verified electronically.
--- NOTE | 2017-04-15 21:56 | ECHRPT ---
Indication: Chest pain, unspecified CONCLUSIONS Normal left ventricular size and wall thickness. The left ventricular systolic function is normal wi th an estimated ejection fraction in the range of 60-65%. Left ventricular diastolic function parameters a re normal. Aortic sclerosis without stenosis. BP: 135 / 63 HR: 53 Rhythm: MEASUREMENTS (Male / Female) Normal Values Technical Quality: 2D ECHO LV Diastolic Diameter PLAX 3.9 cm 4.2 - 5.9 / 3.9 - 5.3 cm LV Systolic Diameter PLAX 2.9 cm IVS Diastolic Thickness 0.9 cm 0.6 - 1.0 / 0.6 - 0.9 cm LVPW Diastolic Thickness 0.9 cm 0.6 - 1.0 / 0.6 - 0.9 cm LV Relative Wall Thickness 0.5 RV Internal Dim ED PLAX 2.2 cm M-MODE Aortic Root Diameter MM 3.2 cm LA Systolic Diameter MM 4.3 cm LA Ao Ratio MM 1.3 AV Cusp Separation MM 1.2 cm DOPPLER Mitral E Point Velocity 81.4 cm/s Mitral A Point Velocity 82.8 cm/s Mitral E to A Ratio 1.0 FINDINGS LEFT VENTRICLE Normal left ventricular size and wall thickness. The left ventricular systolic function is normal wi th an estimated ejection fraction in the range of 60-65%. Left ventricular diastolic function parameters a re normal. there is trace tricuspid valve regurgitation. RIGHT VENTRICLE Normal right ventricular size and systolic function. LEFT ATRIUM The left atrial size is normal. RIGHT ATRIUM The right atrial size is normal. ATRIAL SEPTUM Normal atrial septal thickness without atrial level shunting by limited color doppler interrogation. AORTA The aortic root and proximal ascending aorta are normal in size on limited imaging. MITRAL VALVE Structurally normal mitral valve. No mitral valve stenosis or regurgitation. AORTIC VALVE Trileaflet aortic valve. No aortic valve stenosis or regurgitation. TRICUSPID VALVE Structurally normal tricuspid valve. No tricuspid valve stenosis.there is trace tricuspid valve regu rgitation. PULMONARY VALVE The pulmonary valve is not well visualized. VESSELS The inferior vena cava is normal in size. PERICARDIUM No pericardial effusion. Ny Chen MD, FACC (Electronically Signed) Final Date:15 April 2017 21:55
[2017-04-16 00:23] VITALS: BP 118/68; PULSE 74; RESP 20; TEMP 98.4; O2SAT 99
[2017-04-16 04:23] VITALS: PULSE 46
[2017-04-16 04:58] VITALS: BP 124/60; PULSE 61; RESP 18; TEMP 98.7; O2SAT 99
[2017-04-16] MEDS: INSULIN ASPART SUPPLEMENTAL SCALE SQ SCH (07:00)
[2017-04-16 08:00] VITALS: PULSE 60
--- NOTE | 2017-04-16 08:21 | HHI.PR ---
Subjective Remarks Follow-up bradycardia/chest pain 04/14/17-patient seen and examined, denies any chest pain however complains of right shoulder pain. Improvement of emesis however patient still with nausea. BP stable. Heart rate 46-53 04/15/17-patient seen and examined, denies any shortness of breath or chest pain. Still complaint of nausea but no emesis or abdominal pain. Heart rate still bradycardic. Awaiting results for 2 days SPECT 04/16/17-patient seen and examined; she denies any chest pain or shortness of breath. Clear by Cards for discharge Objective Vitals Vital Signs Date Time Temp Pulse Resp B/P Pulse Ox O2 Delivery O2 Flow Rate FiO2 04/16/17 04:58 98.7 61 18 124/60 99 04/16/17 04:23 46 04/16/17 00:23 98.4 74 20 118/68 99 04/15/17 23:45 56 04/15/17 22:45 54 04/15/17 20:48 98.1 67 18 125/61 97 04/15/17 15:45 98.2 55 16 113/57 95 04/15/17 13:30 81 04/15/17 11:29 98.0 56 17 143/63 96 04/15/17 08:35 98.0 53 16 152/70 97 I/O 04/15/17 04/15/17 04/15/17 04/16/17 04/16/17 04/16/17 07:00 15:00 23:00 07:00 15:00 23:00 Intake Total 480 ml Balance 480 ml Intake Oral 480 ml # Voids 2 Result Diagram: 04/14/17 0651 04/14/17 0651 Objective Remarks GENERAL: NAD SKIN: Warm and dry. HEAD: Normocephalic. EYES: No scleral icterus. No injection or drainage. NECK: Supple, trachea midline. No JVD or lymphadenopathy. CARDIOVASCULAR: Regular rate and rhythm with II/ KATHY RESPIRATORY: Breath sounds equal bilaterally. No accessory muscle use. GASTROINTESTINAL: Abdomen soft, non-tender, nondistended. MUSCULOSKELETAL: No cyanosis, or edema. BACK: Nontender without obvious deformity. No CVA tenderness. Procedures none A/P Problem List: (1) Bradycardia ICD Code: R00.1 Status: Acute (2) Chest pain ICD Code: R07.9 Status: Acute (3) DM (diabetes mellitus) ICD Code: E11.9 Status: Acute (4) Hyperlipemia ICD Code: E78.5 Status: Acute Assessment and Plan 86-year-old female with Symptomatic bradycardia-Resolved Status post Atropine x 1 04/13/17 Appreciate input from cardiology him a however at this point no evidence for need of PPM 2-D echo with EF 60-65% completed SPECT Atypical chest pain Likely secondary to above processes ACS ruled out per protocol with serial cardiac enzyme 2-D echo with EF 60-65% negative SPECT Hypertension-normotensive Beta cj contraindicated Continue Norvasc 5 mg daily 04/14/17 Diabetes type 2-uncontrolled Continue insulin sliding scale and resume Metformin Hemoglobin A1c 12.5 Outpatient follow with Endocrinology Hyperlipidemia Start Lipitor 1mg daily DVT prophylaxis: Bilateral SCDs Problem Qualifiers (1) Chest pain: Qualified Code: R07.9 - Chest pain, unspecified type Carlos Caldwell MD Apr 16, 2017 08:21
[2017-04-16] MEDS ORDERED: ENAL5TAB PO (08:24)
[2017-04-16] MEDS ORDERED: METF500 PO (08:24)
[2017-04-16] MEDS ORDERED: ASPI81TA11 PO (08:24)
[2017-04-16] MEDS ORDERED: INSU-115 (08:27)
[2017-04-16] MEDS ORDERED: BLOOD GLUCOSE T1 TES (08:27)
[2017-04-16] MEDS ORDERED: BAYEKIT (08:27)
[2017-04-16] MEDS ORDERED: INSU-92 (08:27)
[2017-04-16] MEDS ORDERED: LIPI10TA PO (08:30)
--- NOTE | 2017-04-16 08:31 | HHI.DS ---
Discharge Summary Admission Date Apr 13, 2017 at 17:21 Discharge Date: Apr 16, 2017 Admitting Diagnosis Chest Pain/Bradycardia/Hyperglycemia (1) Bradycardia ICD Code: R00.1 (2) Chest pain ICD Code: R07.9 (3) DM (diabetes mellitus) ICD Code: E11.9 (4) Hyperlipemia ICD Code: E78.5 Procedures none Brief History - From Admission 86-year-old female was brought to the ED by EMS for evaluation of chest discomfort for as well as shortness of breath. Patient was noted at a time to have a heart rate of 42 for which she was given atropine IV 1. She described her chest to be located mainly to the right shoulder and 7/10 in intensity. She has a long-standing history of bradycardia for which about a month ago while patient was in [place] a recommendation of pacemaker placement was advised to which patient refused a time. She also presented initially with nausea and vomiting which resolved. Per EMR, patient had one episode of diarrhea. She currently denies any chest pain or abdominal pain. CBC/BMP: 04/14/17 0651 04/14/17 0651 Significant Findings Laboratory Tests Test 04/13/17 04/13/17 04/13/17 04/14/17 15:00 21:16 21:34 03:11 Mean Platelet Volume 11.2 FL (7.0-11.0) Neutrophils (%) (Auto) 77.9 % (16.0-70.0) Estimat Glomerular Filtration 87 ML/MIN (>89) Rate Random Glucose 297 MG/DL (74-106) Serum Osmolality 299 MOSM/KG (275-295) Aspartate Amino Transf 12 U/L (15-37) (AST/SGOT) Troponin I LESS THAN 0.02 LESS THAN 0.02 LESS THAN 0.02 NG/ML NG/ML NG/ML (0.02-0.05) (0.02-0.05) (0.02-0.05) Albumin 3.2 GM/DL (3.4-5.0) Urine Glucose (UA) 1000 mg/dL (NEG) Urine Bacteria RARE /hpf (NONE) Urine Mucus FEW /lpf (OCC) Test 04/14/17 04/15/17 06:51 07:58 Mean Platelet Volume 11.4 FL (7.0-11.0) Neutrophils (%) (Auto) 72.1 % (16.0-70.0) Random Glucose 171 MG/DL (74-106) Hemoglobin A1c 12.5 % (4.3-6.0) Aspartate Amino Transf 12 U/L (15-37) (AST/SGOT) Albumin 3.2 GM/DL (3.4-5.0) LDL Cholesterol 105 MG/DL (0-99) HDL Cholesterol 68.8 MG/DL (40.0-60.0) Imaging Last Impressions Myocardial Perfusion Scan Nuc Med 04/14/17 0000 Signed Impressions: Service Date/Time: Friday, April 14, 2017 12:48 - CONCLUSION: Normal examination. RISK CATEGORY: Low (<1%% Annual Mortality Rate) Norris Zhang MD Chest X-Ray 04/13/17 1449 Signed Impressions: Service Date/Time: Thursday, April 13, 2017 15:04 - CONCLUSION: No acute disease. Sergio Bowen Jr., MD PE at Discharge GENERAL: NAD SKIN: Warm and dry. HEAD: Normocephalic. EYES: No scleral icterus. No injection or drainage. NECK: Supple, trachea midline. No JVD or lymphadenopathy. CARDIOVASCULAR: Regular rate and rhythm with II/ KATHY RESPIRATORY: Breath sounds equal bilaterally. No accessory muscle use. GASTROINTESTINAL: Abdomen soft, non-tender, nondistended. MUSCULOSKELETAL: No cyanosis, or edema. BACK: Nontender without obvious deformity. No CVA tenderness. Hospital Course Symptomatic bradycardia-Resolved Status post Atropine x 1 04/13/17 Appreciate input from cardiology him a however at this point no evidence for need of PPM 2-D echo with EF 60-65% completed SPECT Atypical chest pain Likely secondary to above processes ACS ruled out per protocol with serial cardiac enzyme 2-D echo with EF 60-65% negative SPECT Hypertension-normotensive Beta cj contraindicated Continue Norvasc 5 mg daily 04/14/17 Diabetes type 2-uncontrolled Continue insulin sliding scale and resume Metformin Hemoglobin A1c 12.5 Outpatient follow with Endocrinology Hyperlipidemia Start Lipitor 1mg daily DVT prophylaxis: Bilateral SCDs Pt Condition on Discharge: Stable Discharge Disposition: Discharge Home Discharge Time: > 30 minutes Discharge Instructions DIET: Follow Instructions for: Diabetic Diet Activities you can perform: Regular-No Restrictions Follow up Referrals: Cardiology PCP Follow-up - 1 Week New Medications: Aspirin DR (Aspirin EC) 81 Mg Tabdr 81 MG PO DAILY Prevent Blood Clot #30 Ref 0 TAB Atorvastatin (Lipitor) 10 Mg Tab 10 MG PO HS Cholesterol Management #30 Ref 0 TAB Martha Contour Blood Gluco W/Device (Martha Contour Blood Gluco W/Device) 1 Kit Kit 1 KIT .ROUTE DIRECTED Blood Sugar Management #1 Ref 0 KIT Blood Glucose Test Strips (Blood Glucose Test Strips) Strips Strip 1 EA .ROUTE DIRECTED Blood Sugar Management #1000 Ref 0 BOX [employer] Insulin Syringes/ 30G X 1/2" 0.5 ml ([employer] Insulin Syringes/ 30G X 1/2 " 0.5 ml) 1 Mis Mis 1 EA .ROUTE DIRECTED Blood Sugar Management #1 BOX Insulin Pen Needle/Carefine 30Gx 30G X 8 mm (Carefine Pen [place] 30Gx 30G X 8 mm) 1 Mis Mis 1 BOX .ROUTE DIRECTED PRN 3 #2 Ref 0 BOX Enalapril (Enalapril) 5 Mg Tab 5 MG PO DAILY Blood Pressure Management #30 Ref 3 TAB Metformin (Glucophage) 500 Mg Tab 1000 MG PO BIDPC Blood Sugar Management #60 Ref 3 TAB Discontinued Medications: Enalapril (Enalapril) 5 Mg Tab 5 MG PO DAILY #30 Ref 0 TAB Metformin (Metformin) 1,000 Mg Tab 1000 MG PO BIDPC With meals Blood Sugar Management #60 Ref 0 TAB Carlos Caldwell MD Apr 16, 2017 08:31
[2017-04-16] MEDS ORDERED: metFORMIN HCL 500 MG TAB PO SCH (09:00)
[2017-04-16] MEDS: amLODIPine BESYLATE 5 MG TAB PO SCH (09:00)
[2017-04-16] MEDS ORDERED: ENALAPRIL MALEATE 5 MG TAB PO SCH (09:00)
[2017-04-16] MEDS: SODIUM CHLORIDE 0.9% FLUSH 10 ML FLUSH IV FLUSH SCH (09:00)
[2017-04-16] MEDS ORDERED: ATORVASTATIN 10 MG TAB PO SCH (09:00)
== END 2017-04-16 11:59 | disposition home or self-care (01) | DRG 310 ==
LOC: NEPC 14:26 → NEDA 17:21 → NEDH 21:21 → NEPHCDU 21:51
PROVIDERS: ADMIT Hospitalist; ATTEND Hospitalist
DX: R00.1 Bradycardia, unspecified (principal); E11.65 Type 2 diabetes mellitus with hyperglycemia; Z79.84 Long term (current) use of oral hypoglycemic drugs; R07.89 Other chest pain; I10 Essential (primary) hypertension; E78.5 Hyperlipidemia, unspecified
CPT/HCPCS: 71010; 78452; 80053; 80061; 81001; 82010; 82550; 82948; 83036; 83605; 83690; 83735; 83930; 84100; 84484; 85025; 93005; 93017; 93306; 96361; 96374; A9502; J1815; J2405; J2785; J7040

== ENCOUNTER 2017-07-14 16:39 | Inpatient (IN) | payer OTHER, MEDICARE ==
[~2017-07-14] VITALS: Ht 165.1 cm; Wt 70.6 kg
[~2017-07-14 16:39] MED LIST: ASPI81TA11 PO; BAYEKIT; BLOOD GLUCOSE T1 TES; ENAL5TAB PO; INSU-115; INSU-92; LIPI10TA PO; METF500 PO
[2017-07-14 17:14] VITALS: BP 127/62; PULSE 78; RESP 20; TEMP 98.1; O2SAT 97
--- NOTE | 2017-07-14 18:08 | PD ---
HPI Chief Complaint: Psychiatric Symptoms Time Seen by Provider: 17:30 Travel History International Travel<30 days: No Contact w/Intl Traveler<30days: No History of Present Illness HPI 86-year-old female that presents to the ED for evaluation of expected. Patient is [place] speaking only from [place]. She was offered translating services which she declines at this time. She feels comfortable my [place]. Per patient she does not know why she is here. Per patient and her son called the police and brought her here. Per patient she's never been Cardenas acted her having any psychiatric illness. She states that she has a history of hypertension and diabetes. Otherwise minimal information can be obtained from the patient. Per expected she does have a history of psychiatric illness but unclear as to what and she has been aggressive towards family members threatening the at night. I suspect some dementia as patient does appear to be somewhat confused. No history of CVA. Per patient she takes no blood thinners. Again history is limited because of patient's psychiatric illness which is unclear as to what it is but I suspect some dementia. Per expected a she's also been Cardenas acted in the past withers no records of being Cardenas acted at this facility before. PFSH Past Medical History Cardiovascular Problems: Yes Diabetes: Yes Patient Takes Glucophage: No Social History Alcohol Use: No Tobacco Use: No Allergies-Medications (Allergen,Severity, Reaction): Coded Allergies: No Known Allergies (Unverified , 04/13/17) Reported Meds & Prescriptions Reported Meds & Active Scripts Active Lipitor (Atorvastatin Calcium) 10 Mg Tab 10 Mg PO HS [facility]One Insulin Syringes/ 30G X 1/2" 0.5 ml 1 Mis Mis 1 Ea .ROUTE DIRECTED Carefine Pen [place] 30Gx 30G X 8 mm (Insulin Pen Needle/Carefine 30Gx 30G X 8 mm) 1 Mis Mis 1 Box .ROUTE DIRECTED PRN Blood Glucose Test Strips Strips Strip 1 Ea .ROUTE DIRECTED Martha Contour Blood Gluco W/Device (Device) 1 Kit Kit 1 Kit .ROUTE DIRECTED Aspirin EC (Aspirin) 81 Mg Tabdr 81 Mg PO DAILY Enalapril (Enalapril Maleate) 5 Mg Tab 5 Mg PO DAILY Glucophage (Metformin HCl) 500 Mg Tab 1,000 Mg PO BIDPC Review of Systems ROS Limitations: Poor Historian Except as stated in HPI: all other systems reviewed are Neg Physical Exam Exam Limitations: Poor Historian Narrative GENERAL: SKIN: Warm and dry. HEAD: Atraumatic. Normocephalic. EYES: Pupils equal and round. No scleral icterus. No injection or drainage. ENT: No nasal bleeding or discharge. Mucous membranes pink and moist. Tongue is midline. No uvula deviation. NECK: Trachea midline. No JVD. CARDIOVASCULAR: Regular rate and rhythm. No murmurs, S3, S4. RESPIRATORY: No accessory muscle use. Clear to auscultation. Breath sounds equal bilaterally. GASTROINTESTINAL: Abdomen soft, non-tender, nondistended. Hepatic and splenic margins not palpable. MUSCULOSKELETAL: Extremities without clubbing, cyanosis, or edema. No obvious deformities. Full range of motion of the upper and lower extremities bilaterally. Uses cane. 2+ pulses bilaterally. NEUROLOGICAL: Awake and alert. No obvious cranial nerve deficits. Motor grossly within normal limits. Five out of 5 muscle strength in the arms and legs. Normal speech. PSYCHIATRIC: Demented mood and affect; insight and judgment minimal Data Data Last Documented VS Vital Signs Date Time Temp Pulse Resp B/P (MAP) Pulse Ox O2 Delivery O2 Flow Rate FiO2 07/14/17 17:14 98.1 78 20 127/62 (83) 97 Orders Orders Complete Blood Count With Diff (07/14/17 17:43) Comprehensive Metabolic Panel (07/14/17 17:43) Psych Screen (07/14/17 17:43) Drug Screen, Random Urine (07/14/17 17:43) Alcohol (Ethanol) (07/14/17 17:43) Salicylates (Aspirin) (07/14/17 17:43) Tylenol (Acetaminophen) (07/14/17 17:43) Ct Brain W/O Iv Contrast(Rout) (07/14/17 ) Urinalysis - C+S If Indicated (07/14/17 17:43) Insulin Human Regular Inj (Novolin R Inj (07/14/17 19:15) Blood Glucose (07/14/17 19:13) Blood Glucose (07/14/17 19:43) Labs Laboratory Tests Test 07/14/17 17:49 07/14/17 18:01 White Blood Count 7.3 TH/MM3 Red Blood Count 4.50 MIL/MM3 Hemoglobin 13.3 GM/DL Hematocrit 39.7 % Mean Corpuscular Volume 88.1 FL Mean Corpuscular Hemoglobin 29.6 PG Mean Corpuscular Hemoglobin Concent 33.6 % Red Cell Distribution Width 14.6 % Platelet Count 169 TH/MM3 Mean Platelet Volume 11.4 FL Neutrophils (%) (Auto) 70.9 % Lymphocytes (%) (Auto) 21.5 % Monocytes (%) (Auto) 5.1 % Eosinophils (%) (Auto) 1.6 % Basophils (%) (Auto) 0.9 % Neutrophils # (Auto) 5.2 TH/MM3 Lymphocytes # (Auto) 1.6 TH/MM3 Monocytes # (Auto) 0.4 TH/MM3 Eosinophils # (Auto) 0.1 TH/MM3 Basophils # (Auto) 0.1 TH/MM3 CBC Comment DIFF FINAL Differential Comment Blood Urea Nitrogen 21 MG/DL Creatinine 0.84 MG/DL Random Glucose 391 MG/DL Total Protein 7.4 GM/DL Albumin 3.9 GM/DL Calcium Level 9.1 MG/DL Alkaline Phosphatase 87 U/L Aspartate Amino Transf (AST/SGOT) 19 U/L Alanine Aminotransferase (ALT/SGPT) 26 U/L Total Bilirubin 0.3 MG/DL Sodium Level 135 MEQ/L Potassium Level 4.7 MEQ/L Chloride Level 100 MEQ/L Carbon Dioxide Level 26.6 MEQ/L Anion Gap 8 MEQ/L Estimat Glomerular Filtration Rate 65 ML/MIN Salicylates Level LESS THAN 1.7 MG/DL Acetaminophen Level LESS THAN 2.0 MCG/ML Ethyl Alcohol Level LESS THAN 3 MG/DL Urine Color YELLOW Urine Turbidity HAZY Urine pH 5.0 Urine Specific [place] 1.034 Urine Protein TRACE mg/dL Urine Glucose (UA) 1000 mg/dL Urine Ketones NEG mg/dL Urine Occult Blood NEG Urine Nitrite NEG Urine Bilirubin NEG Urine Urobilinogen LESS THAN 2.0 MG/DL Urine Leukocyte Esterase SMALL Urine RBC 1 /hpf Urine WBC 3 /hpf Urine Squamous Epithelial Cells 2 /hpf Urine Bacteria RARE /hpf Urine Hyaline Casts 13 /lpf Urine Mucus FEW /lpf Microscopic Urinalysis Comment CULT NOT INDICATED Urine Opiates Screen NEG Urine Barbiturates Screen NEG Urine Amphetamines Screen NEG Urine Benzodiazepines Screen NEG Urine Cocaine Screen NEG Urine Cannabinoids Screen NEG MDM Medical Decision Making Medical Screen Exam Complete: Yes Emergency Medical Condition: Yes Medical Record Reviewed: Yes Interpretation(s) CBC & BMP Diagram 07/14/17 17:49 Total Protein 7.4, Albumin 3.9, Calcium Level 9.1, Alkaline Phosphatase 87, Aspartate Amino Transf (AST/SGOT) 19, Alanine Aminotransferase (ALT/SGPT) 26, Total Bilirubin 0.[address] 07/14/17 0000 Signed Impressions: Service Date/Time: Friday, July 14, 2017 18:41 - CONCLUSION: Slight atrophic and small vessel ischemic changes without any evidence for acute hemorrhage or mass effect. José Longo MD Differential Diagnosis Depression versus suicidal ideation versus anxiety versus adjustment disorder versus mood disorder versus bipolar disorder versus schizophrenia versus paranoid disorder versus psychosis versus substance abuse versus alcohol abuse versus alcohol induced psychosis versus homicidality addition versus cutting versus personality disorder Narrative Course 86-year-old female that presents to the ED for evaluation of psych. Patient was properly examined and was found to have signs and symptoms of unclear etiology. Unclear as to what her psychiatric illnesses. Patient's expert days hard to read secondary to bad handwriting. From what I can discern she has been aggressive towards family members and this is why she was put on EXPARTE. I suspect that she has some history of dementia as well as possible underlying psychiatric illness. She does appear to be somewhat confused and exam and even in her own language she does not appear to understand some questions. She does appear to be knowledgeable that a psychiatrist will see her suspect that she has mid with a psychiatrist in the past although she denies this. At this time labs and imaging were ordered to rule out any sign of acute disease. Patient will be medically clear. Okay to be seen by psych. Mental health screening was discussed with the patient. Diagnosis Primary Impression: Dementia Qualified Codes: F03.91 - Unspecified dementia with behavioral disturbance Jose Miguel Maldonado Jul 14, 2017 18:08
[2017-07-14 18:14] LABS: AUTOMATED NEUTROPHIL # 5.2 TH/MM3 (1.8-7.7); BASOPHIL # 0.1 TH/MM3 (0-0.2); BASOPHIL % 0.9 % (0.0-2.0); EOSINOPHIL # 0.1 TH/MM3 (0-0.4); EOSINOPHIL % 1.6 % (0.0-4.0); HEMATOCRIT 39.7 % (35.0-46.0); HEMOGLOBIN 13.3 GM/DL (11.6-15.3); LYMPH % 21.5 % (9.0-44.0); LYMPHOCYTE # 1.6 TH/MM3 (1.0-4.8); MEAN CELL VOLUME 88.1 FL (80.0-100.0); MEAN CORPUSCULAR HEMOGLOBIN 29.6 PG (27.0-34.0); MEAN CORPUSCULAR HGB CONC 33.6 % (32.0-36.0); MEAN PLATELET VOLUME 11.4 FL (7.0-11.0); MONO % 5.1 % (0.0-8.0); MONOCYTE # 0.4 TH/MM3 (0-0.9); NEUT % 70.9 % (16.0-70.0); PLATELET COUNT 169 TH/MM3 (150-450); RED CELL DISTRIBUTION WIDTH 14.6 % (11.6-17.2); WHITE BLOOD COUNT 7.3 TH/MM3 (4.0-11.0)
[2017-07-14 18:23] LABS: BACTERIA, URINE RARE /hpf; BILIRUBIN, URINE NEG (NEG); BLOOD, URINE NEG (NEG); GLUCOSE,URINE 1000 mg/dL (NEG); HYALINE CAST, URINE 13 /lpf (RARE); KETONE, URINE NEG (NEG); MUCUS URINE FEW /lpf (OCC); NITRITE,URINE NEG (NEG); SQUAMOUS EPITHELIAL CELL URINE 2 /hpf (0-5); URINE COLOR YELLOW (YELLW/STRAW); URINE LEUKOCYTE ESTERASE SMALL (NEG)
[2017-07-14 18:39] LABS: ALBUMIN 3.9 GM/DL (3.4-5.0); AST (GOT) 19 U/L (15-37); BICARBONATE 26.6 MEQ/L (21.0-32.0); BLOOD UREA NITROGEN 21 MG/DL (7-18); CALCIUM 9.1 MG/DL (8.5-10.1); CHLORIDE 100 MEQ/L (98-107); CREATININE 0.84 MG/DL (0.50-1.00); GLOMERULAR FILTRATION RATE 65 ML/MIN (>89); GLUCOSE,RANDOM 391 MG/DL (74-106); SODIUM (NA) 135 MEQ/L (136-145)
[2017-07-14 18:42] LABS: ALKALINE PHOSPHATASE 87 U/L (45-117); ALT (GPT) 26 U/L (10-53); TOTAL BILIRUBIN ADULT 0.3 MG/DL (0.2-1.0); TOTAL PROTEIN 7.4 GM/DL (6.4-8.2)
[2017-07-14 18:45] LABS: ACETAMINOPHEN LESS THAN 2.0 MCG/ML (10.0-30.0)
--- NOTE | 2017-07-14 19:04 | RADRPT ---
EXAM DATE/TIME: 07/14/2017 18:41 [facility] COMPARISON: No previous studies available for comparison. INDICATIONS : Altered mental status. RADIATION DOSE: 29.93 CTDIvol (mGy) MEDICAL HISTORY : Cardiovascular disease. Diabetes mellitus type 2. SURGICAL HISTORY : None. ENCOUNTER: Initial ACUITY: 1 day PAIN SCALE: 0/10 LOCATION: cranial TECHNIQUE: Multiple contiguous axial images were obtained of the head. Using automated exposure control and adj ustment of the mA and/or kV according to patient size, radiation dose was kept as low as reasonably a chievable to obtain optimal diagnostic quality images. DICOM format image data is available electro nically for review and comparison. FINDINGS: There is no evidence for intracranial hemorrhage, mass effect, mass lesions, or edema. The visualize d bony structures appear intact. Slight degree of brain atrophy is seen. Slight periventricular whit e matter changes are seen nonspecific mostly consistent with chronic small vessel ischemic changes. There are no signs of acute infarction for technique. CONCLUSION: Slight atrophic and small vessel ischemic changes without any evidence for acute hemorrhage or mass effect. José Longo MD on July 14, 2017 at 19:01 Board Certified Radiologist. This report was verified electronically.
[2017-07-14] MEDS ORDERED: INSULIN HUMAN REGULAR 1,000 UNITS/10 ML VIAL SQ ONE (19:15)
[2017-07-14] MEDS ORDERED: OMEP40CA2 PO (23:50)
[2017-07-14] MEDS ORDERED: NAPR500 PO (23:50)
[2017-07-14] MEDS ORDERED: REME15TA PO (23:50)
[2017-07-15 01:12] VITALS: BP 128/72; PULSE 88; RESP 20; O2SAT 97
[2017-07-15 02:00] VITALS: BP 168/76; PULSE 70; RESP 18; TEMP 97.7; O2SAT 99
[2017-07-15] MEDS ORDERED: ALUMINUM/MAGNESIUM/SIMETH 30 ML CUP PO PRN (02:30)
[2017-07-15] MEDS ORDERED: MAGNESIUM HYDROXIDE SUSP 30 ML CUP PO PRN (02:30)
[2017-07-15] MEDS ORDERED: ACETAMINOPHEN 325 MG TAB PO PRN (02:30)
[2017-07-15] MEDS ORDERED: hydrOXYzine HCL 50 MG TAB PO PRN (02:30)
[2017-07-15 06:19] VITALS: BP 121/59; PULSE 69; RESP 14; TEMP 97.5
[2017-07-15] MEDS ORDERED: ENALAPRIL MALEATE 5 MG TAB PO SCH (09:00)
[2017-07-15] MEDS ORDERED: ASPIRIN 81 MG CHEW TAB PO SCH (09:00)
[2017-07-15] MEDS ORDERED: metFORMIN HCL 500 MG TAB PO SCH (09:00)
--- NOTE | 2017-07-15 14:51 | HHI.HP ---
Provisional Diagnosis Admission Date Jul 15, 2017 at 00:13 [place] I. Unspecified psychosis, major neurocognitive disorder, Alzheimer's type [place] II. Deferred [place] III. Diabetes, osteoporosis, hypertension [place] IV. Hopelessness, poor family and social support [place] V. 30 Certification of Person's Competence To Provide Express and Informed Consent I have personally examined Shelby Grajeda , a person being served at [facility] on, Jul 15, 2017 14:36. Express and informed consent means consent voluntarily given in writing, by a competent person, after sufficient explanation and disclosure of the subject matter involved to enable the person to make a knowing and willful decision without any element of force, fraud, deceit, duress, or other form of constraint or coercion. This person is 18 years of age or older, is not now known to be incompetent to consent to treatment with a guardian advocate, and does not have a health care surrogate or proxy currently making medical treatment decisions. I have found this person to be one of the following: [] Competent to provide express and informed consent, as defined above, for voluntary admission to this facility and is competent to provide express and informed consent for treatment. He/she has the consistent capacity to make well reasoned, willful, and knowing decisions concerning his or her medical or mental health treatment. The person fully and consistently understands the purpose of the admission for examination/placement and is fully capable of personally exercising all rights assured [place] [x] Incompetent to provide express and informed consent to voluntary admission, and this is incompetent to provide express and informed consent to treatment. The person must be transferred to involuntary status and a petition for a guardian advocate filed with the Circuit Court. [] Refusing to provide express and informed consent to voluntary admission but is competent to provide express and informed consent for treatment. The person must be discharged or transferred to involuntary status. Form shall be completed within 24 hours of a person's arrival at the receiving facility and filed in the clinical record of each person: 1. Admitted on a voluntary basis 2. Permitted to provide express and informed consent to his/her own treatment 3. Allowed to transfer from involuntary to voluntary status 4. Prior to permitting a person to consent to his or her own treatment after having been previously found incompetent to consent to treatment. History of Present Illness Capacity: Lacks Capacity HPI The patient is a 86-year-old woman, she is from [place], [place]ian speaking only, domiciled with her son, retired, , with psychiatric history of dementia, 3 previous psychiatric hospitalizations, no previous suicidal attempts, she's not in psychotropics, medical history diabetes, osteoporosis, hypertension, who presents to the ED for evaluation of psychosis. Per patient she does not know why she is here. Per patient and her son called the police and brought her here. Per patient she's never been Cardenas acted her having any psychiatric illness. She states that she has a history of hypertension and diabetes. Documentation was reviewed, case discussed with nurses and staff. On psychiatric evaluation today patient is calm, proficiently cooperative and pleasant. Patient is very poor historian due to her level of dementia. He does not know the reason of her hospitalization. Patient says that she is here "because my son brought me due to up pain in the legs". Patient is requesting to go back home with her son. She reports good mood, she says that she feels happy, denies depression, denies anxiety, denies jakob and psychosis. She denies suicidal and homicidal ideation, she denies visual and auditory hallucinations. Patient knows that she is in the hospital, doesn't know the name, doesn't know the town or the state. Patient is oriented in time, she says that is July 15, 2017. She does not know who was the president. As per nurse in charge, patient today has been agitated, not aggressive, but hours ago she was Anxious stating that a man in a glass window was trying to talk to her, when there was nobody there. I spoke with her son, Julio Cesar grajeda [phone], who explains that he decided to bring his mother to the hospital, because she has been frequently agitated at home, becoming aggressive, more disorganized than before. He says that she has been having visual hallucinations of people coming inside her room and inside her house. She also becomes paranoid looking at the window and screaming stating that people are out watching at her and following her. He says that they just got to a point where he doesn't feel safe taking care of her anymore. They live in a small apartment and he doesn't feel that is a great jakob to continue taking care of his mother alone. He says that his mother has been hospitalized in psychiatry 3 times in the past, one in [place], to importantly due to a very similar episode. Review of Systems Constitutional: DENIES: Diaphoretic episodes, Fatigue, Fever, Weight gain, Weight loss, Chills, Dizziness, Change in appetite, Night Sweats Endocrine: DENIES: Abnorml menstrual pattern, Heat/cold intolerance, Polydipsia , Polyuria, Polyphagia Eyes: DENIES: Blurred vision, Diplopia, Eye inflammation, Eye pain, Vision loss , Photosensitivity, Double Vision Ears, nose, mouth, throat: DENIES: Tinnitus, Hearing loss, Vertigo, Nasal discharge, Oral lesions, Throat pain, Hoarseness, Ear Pain, Running Nose, Epistaxis, Sinus Pain, Toothache, Odynophagia Respiratory: DENIES: Apneas, Cough, Snoring, Wheezing, Hemoptysis, Sputum production, Shortness of breath Cardiovascular: DENIES: Chest pain, Palpitations, Syncope, Dyspnea on Exertion , PND, Lower Extremity Edema, Orthopnea, Claudication Gastrointestinal: DENIES: Abdominal pain, Black stools, Bloody stools, Constipation, Diarrhea, Nausea, Vomiting, Difficulty Swallowing, Anorexia Musculoskeletal: DENIES: Joint pain, Muscle aches, Stiffness, Joint Swelling, Back pain, Neck pain Hematologic/lymphatic: DENIES: Bruising, Lymphadenopathy Immunologic/allergic: DENIES: Eczema, Urticaria Psychiatric: COMPLAINS OF: Anxiety, Hallucinations, DENIES: Confusion, Mood changes, Depression, Agitation, Suicidal Ideation, Homicidal Ideation, Delusions Substance Abuse History Drugs/Alcohol past 12 months Patient does not use alcohol or illicit drugs Past Family Social History Coded Allergies: No Known Allergies (Unverified , 04/13/17) Active Scripts Atorvastatin (Lipitor) 10 Mg Tab, 10 MG PO HS for Cholesterol Management, #30 TAB 0 Refills Prov:Carlos Caldwell MD 04/16/[address] (Aspirin EC) 81 Mg Tabdr, 81 MG PO DAILY for Prevent Blood Clot, #30 TAB 0 Refills Prov:Carlos Caldwell MD 04/16/17 Enalapril (Enalapril) 5 Mg Tab, 5 MG PO DAILY for Blood Pressure Management, # 30 TAB 3 Refills Prov:Carlos Caldwell MD 04/16/17 Metformin (Glucophage) 500 Mg Tab, 1000 MG PO BIDPC for Blood Sugar Management, #60 TAB 3 Refills Prov:Carlos Caldwell MD 04/16/17 Reported Medications Naproxen (Naprosyn) 500 Mg Tab, 500 MG PO BID, #60 TAB 0 Refills 07/14/17 Omeprazole (Omeprazole) 40 Mg Cap, 40 MG PO DAILY, #30 CAP 0 Refills 07/14/17 Mirtazapine (Remeron) 15 Mg Tab, 15 MG PO HS for Depression Control, #30 TAB 0 Refills 07/14/17 Discontinued Scripts CareOne Insulin Syringes/ 30G X 1/2" 0.5 ml (CareOne Insulin Syringes/ 30G X 1/2 " 0.5 ml) 1 Mis Mis, 1 EA .ROUTE DIRECTED for Blood Sugar Management, #1 BOX Prov:Carlos Caldwell MD 04/16/17 Insulin Pen Needle/Carefine 30Gx 30G X 8 mm (Carefine Pen [place] 30Gx 30G X 8 mm) 1 Mis Mis, 1 BOX .ROUTE DIRECTED Y for 3, #2 BOX 0 Refills Prov:Carlos Caldwell MD 04/16/17 Blood Glucose Test Strips (Blood Glucose Test Strips) Strips Strip, 1 EA .ROUTE DIRECTED for Blood Sugar Management, #1000 BOX 0 Refills Prov:Carlos Caldwell MD 04/16/17 Martha Contour Blood Gluco W/Device (Martha Contour Blood Gluco W/Device) 1 Kit Kit, 1 KIT .ROUTE DIRECTED for Blood Sugar Management, #1 KIT 0 Refills Prov:Carlos Caldwell MD 04/16/17 Current Medications Medications (Trade) Dose Ordered Sig/Kathy Route Start Time Stop Time Status Last Admin (Atarax) 50 mg Q6H PRN PO 07/15/17 02:30 (Tylenol) 650 mg Q4H PRN PO 07/15/17 02:30 (Milk Of Magnesia Liq) 30 ml DAILY PRN PO 07/15/17 02:30 (Mag-Al Plus Susp Liq) 30 ml Q6H PRN PO 07/15/17 02:30 (Aspirin Chew) 81 mg DAILY PO 07/15/17 09:00 07/15/17 09:38 (Lipitor) 10 mg HS PO 07/15/17 21:00 (Vasotec) 5 mg DAILY PO 07/15/17 09:00 07/15/17 09:38 (Glucophage) 1,000 mg BIDPC PO 07/15/17 09:00 07/15/17 09:38 (SEROquel) 12.5 mg BID@09,12 PO 07/16/17 09:00 UNV Family Psych History No family psychiatric history reported Social History Patient was born and raised in [place], she lives in [facility] with her son, she is unemployed, , supported by Social Security, her highest level of education is eighth grade Patient's Strengths (min. 2) Supported her son, Physical Exam No psychomotor agitation or retardation, no tremors, no EPS, no withdrawal symptoms, no stiffness present Vital Signs Vital Signs Date Time Temp Pulse Resp B/P (MAP) Pulse Ox O2 Delivery O2 Flow Rate FiO2 07/15/17 06:19 97.5 69 14 121/59 (79) 07/15/17 02:00 99 07/15/17 01:12 Room Air I/O 07/15/17 07/15/17 07/16/17 08:00 16:00 00:00 Intake Total 360 ml 120 ml Balance 360 ml 120 ml Lab Results Test 07/14/17 17:49 07/14/17 18:01 07/15/17 08:05 White Blood Count 7.3 TH/MM3 Red Blood Count 4.50 MIL/MM3 Hemoglobin 13.3 GM/DL Hematocrit 39.7 % Mean Corpuscular Volume 88.1 FL Mean Corpuscular Hemoglobin 29.6 PG Mean Corpuscular Hemoglobin Concent 33.6 % Red Cell Distribution Width 14.6 % Platelet Count 169 TH/MM3 Mean Platelet Volume 11.4 FL Neutrophils (%) (Auto) 70.9 % Lymphocytes (%) (Auto) 21.5 % Monocytes (%) (Auto) 5.1 % Eosinophils (%) (Auto) 1.6 % Basophils (%) (Auto) 0.9 % Neutrophils # (Auto) 5.2 TH/MM3 Lymphocytes # (Auto) 1.6 TH/MM3 Monocytes # (Auto) 0.4 TH/MM3 Eosinophils # (Auto) 0.1 TH/MM3 Basophils # (Auto) 0.1 TH/MM3 CBC Comment DIFF FINAL Differential Comment Blood Urea Nitrogen 21 MG/DL Creatinine 0.84 MG/DL Random Glucose 391 MG/DL Total Protein 7.4 GM/DL Albumin 3.9 GM/DL Calcium Level 9.1 MG/DL Alkaline Phosphatase 87 U/L Aspartate Amino Transf (AST/SGOT) 19 U/L Alanine Aminotransferase (ALT/SGPT) 26 U/L Total Bilirubin 0.3 MG/DL Sodium Level 135 MEQ/L Potassium Level 4.7 MEQ/L Chloride Level 100 MEQ/L Carbon Dioxide Level 26.6 MEQ/L Anion Gap 8 MEQ/L Estimat Glomerular Filtration Rate 65 ML/MIN Salicylates Level LESS THAN 1.7 MG/DL Acetaminophen Level LESS THAN 2.0 MCG/ML Ethyl Alcohol Level LESS THAN 3 MG/DL Urine Color YELLOW Urine Turbidity HAZY Urine pH 5.0 Urine Specific [place] 1.034 Urine Protein TRACE mg/dL Urine Glucose (UA) 1000 mg/dL Urine Ketones NEG mg/dL Urine Occult Blood NEG Urine Nitrite NEG Urine Bilirubin NEG Urine Urobilinogen LESS THAN 2.0 MG/DL Urine Leukocyte Esterase SMALL Urine RBC 1 /hpf Urine WBC 3 /hpf Urine Squamous Epithelial Cells 2 /hpf Urine Bacteria RARE /hpf Urine Hyaline Casts 13 /lpf Urine Mucus FEW /lpf Microscopic Urinalysis Comment CULT NOT INDICATED Urine Opiates Screen NEG Urine Barbiturates Screen NEG Urine Amphetamines Screen NEG Urine Benzodiazepines Screen NEG Urine Cocaine Screen NEG Urine Cannabinoids Screen NEG Rapid Plasma Reagin NON-REACTIVE Mental Status Examination Appearance: Appropriate Consciousness: Alert Orientation: Person, Date/Time Motor Activity: Normal gait Speech: Unremarkable Language: Adequate Fund of Knowledge: Inadequate Attention and Concentration: Adequate Memory: Impaired Mood: Appropriate Affect: Appropriate Thought Process & Associations: Intact Thought Content: Appropriate Hallucination Type: Visual Delusion Type: Paranoid Suicidal Ideation: No Suicidal Plan: No Suicidal Intention: No Homicidal Ideation: No Homicidal Plan: No Homicidal Intention: No Insight: Adequate Judgment: Adequate Assessment & Plan Problem List: (1) Unspecified psychosis ICD Codes: F29 - Unspecified psychosis not due to a substance or known physiological condition Assessment & Plan: On psychiatric evaluation today the patient is calm, superficially cooperative, with signs and evidence of moderate to severe chronic dementia. Patient is just oriented in person and partially in time, but disoriented in place. Patient has been allegedly presented with increased in severity and frequency visual hallucinations, paranoia, disorganized and aggressive behavior and also agitation to the point that her son does not feel safe having her at home with him. Patient needs psychiatric hospitalization for stabilization and safety. We'll start Seroquel 12.5 mg twice a day for behavior control and psychosis. Also restart medications for diabetes and hypertension, metformin 500 mg twice a day, enalapril [address] a consult medicine to address medical illnesses. Will consult PT or OT. ammonia worker intervention for individual and group therapies, psychosocial assessment and also for coordination of safe discharge. Brief supportive psychotherapy and psychoeducation provided. Assessment & Plan Estimated LOS: Niko Romero MD Jul 15, 2017 14:51
[2017-07-15] MEDS ORDERED: PILL SPLITTER OTHER PRN (15:15)
[2017-07-15] MEDS ORDERED: DEXTROSE 50% IN WATER 50 ML SYRINGE IV PUSH PRN (16:15)
[2017-07-15] MEDS ORDERED: cloNIDine HCL 0.1 MG TAB PO PRN (16:15)
[2017-07-15] MEDS ORDERED: GLUCAGON 1 MG/ML VIAL OTHER PRN (16:15)
[2017-07-15] MEDS: INSULIN ASPART SUPPLEMENTAL SCALE SQ SCH ×2 (17:00→20:34)
--- NOTE | 2017-07-15 17:18 | PD.CONS ---
[facility] Request[facility] By Dr. Christianson Reason for Consult Medical management Primary Care Physician Unknown Diagnoses: History of Present Illness Patient is only Icelandic speaking however I was able to communicate with her in Icelandic. No spanish translator was needed Patient tells me that she doesn't quite remember why she is admitted to the hospital. She denies hearing voices or seeing things. She tells me that while she was in the ED, she started crying because she didn't know where her son was. She states that her son is having surgery and she would like to go home however she needs her son to sign the paperwork for her to be released. She tells me that she has a history of diabetes and high blood pressure. She is not on insulin and only takes metformin 1000 mg twice a day. She tells me that she recently moved from [place]. Per records, patient apparently has been agitated at home and has become aggressive. It looks like she's been experiencing visual hallucinations however patient denies this. Son who takes care of his mother doesn't feel safe taking care of her anymore. Apparently patient has been hospitalized in the psychiatric [facility] 3 times in the past. Currently, patient is calm. She tells me that she is really hopeful to go home soon. She doesn't understand why she is here. He denies any pain, chest pains , shortness of breath, nausea or vomiting, burning with urination, any abdominal pain. Review of Systems Except as stated in HPI: all other systems reviewed are Neg Past Family Social History Allergies: Coded Allergies: No Known Allergies (Unverified , 04/13/17) Past Medical History Dementia, diabetes, hypertension Past Surgical History Hysterectomy, cholecystectomy. Reported Medications Reported Meds & Active Scripts Active Lipitor (Atorvastatin Calcium) 10 Mg Tab 10 Mg PO HS Aspirin EC (Aspirin) 81 Mg Tabdr 81 Mg PO DAILY Enalapril (Enalapril Maleate) 5 Mg Tab 5 Mg PO DAILY Glucophage (Metformin HCl) 500 Mg Tab 1,000 Mg PO BIDPC Reported Naprosyn (Naproxen) 500 Mg Tab 500 Mg PO BID Omeprazole 40 Mg Cap 40 Mg PO DAILY Remeron (Mirtazapine) 15 Mg Tab 15 Mg PO HS Family History Mother had diabetes, father had asthma Social History Denies any smoking history, alcohol use or illegal drug use. She is from [place] and lives with her son. Physical Exam Vital Signs Vital Signs Date Time Temp Pulse Resp B/P (MAP) Pulse Ox O2 Delivery O2 Flow Rate FiO2 07/15/17 06:19 97.5 69 14 121/59 (79) 07/15/17 02:00 97.7 70 18 168/76 (106) 99 07/15/17 01:12 88 20 128/72 (90) 97 Room Air 07/14/17 17:14 98.1 78 20 127/62 (83) 97 Physical Exam GENERAL: Elderly female, sitting up on the chair. SKIN: No rashes, ecchymoses or lesions. Cool and dry. HEAD: Atraumatic. Normocephalic. EYES: Bilateral colombomas noted. Extraocular motions intact. ENT: Nose without drainage. Throat without erythema, tonsillar hypertrophy or exudate. Uvula midline. Airway patent. NECK: Trachea midline. No JVD or lymphadenopathy. CARDIOVASCULAR: Regular rate and rhythm without murmurs RESPIRATORY: Clear to auscultation. Breath sounds equal bilaterally. No wheezes GASTROINTESTINAL: Abdomen soft, non-tender, nondistended. No guarding. MUSCULOSKELETAL: Extremities without edema. Negative Homans sign bilaterally. NEUROLOGICAL: Awake and alert. Cranial nerves II through XII intact. Motor and sensory grossly within normal limits. Normal speech. Laboratory Laboratory Tests Test 07/14/17 17:49 07/14/17 18:01 07/15/17 08:05 White Blood Count 7.3 Red Blood Count 4.50 Hemoglobin 13.3 Hematocrit 39.7 Mean Corpuscular Volume 88.1 Mean Corpuscular Hemoglobin 29.6 Mean Corpuscular Hemoglobin Concent 33.6 Red Cell Distribution Width 14.6 Platelet Count 169 Mean Platelet Volume 11.4 Neutrophils (%) (Auto) 70.9 Lymphocytes (%) (Auto) 21.5 Monocytes (%) (Auto) 5.1 Eosinophils (%) (Auto) 1.6 Basophils (%) (Auto) 0.9 Neutrophils # (Auto) 5.2 Lymphocytes # (Auto) 1.6 Monocytes # (Auto) 0.4 Eosinophils # (Auto) 0.1 Basophils # (Auto) 0.1 CBC Comment DIFF FINAL Differential Comment Blood Urea Nitrogen 21 Creatinine 0.84 Random Glucose 391 Total Protein 7.4 Albumin 3.9 Calcium Level 9.1 Alkaline Phosphatase 87 Aspartate Amino Transf (AST/SGOT) 19 Alanine Aminotransferase (ALT/SGPT) 26 Total Bilirubin 0.3 Sodium Level 135 Potassium Level 4.7 Chloride Level 100 Carbon Dioxide Level 26.6 Anion Gap 8 Estimat Glomerular Filtration Rate 65 Salicylates Level LESS THAN 1.7 Acetaminophen Level LESS THAN 2.0 Ethyl Alcohol Level LESS THAN 3 Urine Color YELLOW Urine Turbidity HAZY Urine pH 5.0 Urine Specific [place] 1.034 Urine Protein TRACE Urine Glucose (UA) 1000 Urine Ketones NEG Urine Occult Blood NEG Urine Nitrite NEG Urine Bilirubin NEG Urine Urobilinogen LESS THAN 2.0 Urine Leukocyte Esterase SMALL Urine RBC 1 Urine WBC 3 Urine Squamous Epithelial Cells 2 Urine Bacteria RARE Urine Hyaline Casts 13 Urine Mucus FEW Microscopic Urinalysis Comment CULT NOT INDICATED Urine Opiates Screen NEG Urine Barbiturates Screen NEG Urine Amphetamines Screen NEG Urine Benzodiazepines Screen NEG Urine Cocaine Screen NEG Urine Cannabinoids Screen NEG Rapid Plasma Reagin NON-REACTIVE Result Diagram: 07/14/17 1749 07/14/17 1749 Imaging Last Impressions Head CT 07/14/17 0000 Signed Impressions: Service Date/Time: Friday, July 14, 2017 18:41 - CONCLUSION: Slight atrophic and small vessel ischemic changes without any evidence for acute hemorrhage or mass effect. José Longo MD Assessment and Plan Assessment and Plan dementia/agitation/visual and auditory hallucinations: management per psych DM: Per records pt was supposed to be on Insulin sliding scale in addition to metformin however pt tells me that she hasn't been taking the insulin. will start her on 5units of levemir at bedtime, cover w low dose insuline sliding scale. Adjust dose of levemir as needed. monitor accuchecks HTN: stable. resumed home med. added clonidine prn for SBP>180 hyperlipidemia: resumed atorvastatin. Thank you for allowing us to take part of Mrs Grajeda's care, will continue to monitor. Code Status full code Discussed Condition With patient and Dr. Edwards (resident physician working with me at this time) Nadeen Argueta MD Jul 15, 2017 17:18
[2017-07-15 17:41] VITALS: BP 164/71; PULSE 52; RESP 15; TEMP 97.5; O2SAT 100
[2017-07-15] MEDS: metFORMIN HCL 500 MG TAB PO SCH (18:15)
[2017-07-15] MEDS: ATORVASTATIN 10 MG TAB PO SCH (20:33)
[2017-07-15] MEDS: INSULIN DETEMIR 100 UNITS/ML VIAL SQ SCH (20:34)
[2017-07-15] MEDS ORDERED: ATORVASTATIN 10 MG TAB PO SCH (21:00)
[2017-07-16 05:31] VITALS: BP 109/54; PULSE 59; RESP 16; TEMP 97.5; O2SAT 96
[2017-07-16] MEDS: INSULIN ASPART SUPPLEMENTAL SCALE SQ SCH ×4 (08:00→21:00)
[2017-07-16] MEDS: QUEtiapine FUMARATE 25 MG TAB PO SCH ×2 (08:19→12:00)
[2017-07-16] MEDS: ASPIRIN EC 81 MG TABEC PO SCH (08:19)
[2017-07-16] MEDS: metFORMIN HCL 500 MG TAB PO SCH ×2 (08:19→17:21)
[2017-07-16] MEDS ORDERED: ENALAPRIL MALEATE 5 MG TAB PO SCH (09:00)
[2017-07-16 11:22] LABS: BICARBONATE 29.4 MEQ/L (21.0-32.0); BLOOD UREA NITROGEN 19 MG/DL (7-18); CALCIUM 9.7 MG/DL (8.5-10.1); CHLORIDE 97 MEQ/L (98-107); CHOLESTEROL 182 MG/DL (120-200); CHOLESTEROL/ HDL RATIO 2.21 RATIO; CREATININE 0.69 MG/DL (0.50-1.00); FREE T4 0.96 NG/DL (0.76-1.46); GLOMERULAR FILTRATION RATE 81 ML/MIN (>89); GLUCOSE,RANDOM 255 MG/DL (74-106); HDL CHOLESTEROL 82.1 MG/DL (40.0-60.0); LDL CHOLESTEROL 73 MG/DL (0-99); SODIUM (NA) 134 MEQ/L (136-145); TRIGLYCERIDES 137 MG/DL (42-150)
--- NOTE | 2017-07-16 12:28 | PD.PSY.CON ---
Provisional Diagnosis Admission Date Jul 15, 2017 at 00:13 [place] I. Unspecified psychosis, major neurocognitive disorder, Alzheimer's type [place] II. Deferred [place] III. Diabetes, osteoporosis, hypertension [place] IV. Hopelessness, poor family and social support [place] V. 30 History of Present Illness Service Psychiatry Consult Requested By Dr. Niko Tate Reason for Consult Second Opinion Primary Care Physician Unknown HPI The patient is a 86-year-old woman, she is from [place], Lithuanian speaking only, domiciled with her son, retired, , with psychiatric history of dementia, 3 previous psychiatric hospitalizations, no previous suicidal attempts, she's not in psychotropics, medical history diabetes, osteoporosis, hypertension, who presents to the ED for evaluation of psychosis. Per patient she does not know why she is here. Per patient and her son called the police and brought her here. Per patient she's never been [place] acted her having any psychiatric illness. She states that she has a history of hypertension and diabetes. Documentation was reviewed, case discussed with nurses and staff. On psychiatric evaluation today patient is calm, proficiently cooperative and pleasant. Patient is very poor historian due to her level of dementia. He does not know the reason of her hospitalization. Patient says that she is here "because my son brought me due to up pain in the legs". Patient is requesting to go back home with her son. She reports good mood, she says that she feels happy, denies depression, denies anxiety, denies jakob and psychosis. She denies suicidal and homicidal ideation, she denies visual and auditory hallucinations. Patient knows that she is in the hospital, doesn't know the name, doesn't know the town or the state. Patient is oriented in time, she says that is July 15, 2017. She does not know who was the president. As per nurse in charge, patient today has been agitated, not aggressive, but hours ago she was Anxious stating that a man in a glass window was trying to talk to her, when there was nobody there. I spoke with her son, Julio Cesar killian [phone], who explains that he decided to bring his mother to the hospital, because she has been frequently agitated at home, becoming aggressive, more disorganized than before. He says that she has been having visual hallucinations of people coming inside her room and inside her house. She also becomes paranoid looking at the window and screaming stating that people are out watching at her and following her. He says that they just got to a point where he doesn't feel safe taking care of her anymore. They live in a small apartment and he doesn't feel that is a great jakob to continue taking care of his mother alone. He says that his mother has been hospitalized in psychiatry 3 times in the past, one in [place], to [facility] due to a very similar episode. 07/16/17 Patient seen for second opinion. Patient is a 6-year-old woman from [place], recently moved to [place] 4 weeks ago, recently domiciled with son , , spastic psychiatric history of dementia, previous psychiatric hospitalizations, no previous suicide attempts who was brought to the hospital for the having the presenting psychotic symptoms. Patient was found sitting in hospital bed, cooperative interview today. Patient is alert and oriented to person, date, place. Patient states that she was at home, went police had come in. She stated patient states that she does not understand why they had brought her to the hospital. Patient states that she had come to [place] for weeks ago and planned to stay in [place] permanently she reports having sold her house and [place]. Patient states that she had a staying with her son but that he was trying to get her to find her own place as she states her son is currently with section 8 housing and does not allow for her to stay there. Patient believes that the son had called the police due to having been arguing over being told that she needed to buy her own residence. Patient reports that she is feeling "fine", little depressed due to having discord with her son over housing. Patient and endorses auditory hallucination of a person announcing any speaker on the community that she has inherited money and then that she hears this voice telling her that she needs to go find her inheritance. Patient at this time denies any hallucinations at time of interview, denies any SI or HI. Past Family Social History Coded Allergies: No Known Allergies (Unverified , 04/13/17) Active Scripts Atorvastatin (Lipitor) 10 Mg Tab, 10 MG PO HS for Cholesterol Management, #30 TAB 0 Refills Prov:Carlos Caldwell MD 04/16/[address] (Aspirin EC) 81 Mg Tabdr, 81 MG PO DAILY for Prevent Blood Clot, #30 TAB 0 Refills Prov:Carlos Caldwell MD 04/16/17 Enalapril (Enalapril) 5 Mg Tab, 5 MG PO DAILY for Blood Pressure Management, # 30 TAB 3 Refills Prov:Carlos Caldwell MD 04/16/17 Metformin (Glucophage) 500 Mg Tab, 1000 MG PO BIDPC for Blood Sugar Management, #60 TAB 3 Refills Prov:Carlos Caldwell MD 04/16/17 Reported Medications Naproxen (Naprosyn) 500 Mg Tab, 500 MG PO BID, #60 TAB 0 Refills 07/14/17 Omeprazole (Omeprazole) 40 Mg Cap, 40 MG PO DAILY, #30 CAP 0 Refills 07/14/17 Mirtazapine (Remeron) 15 Mg Tab, 15 MG PO HS for Depression Control, #30 TAB 0 Refills 07/14/17 Discontinued Scripts CareOne Insulin Syringes/ 30G X 1/2" 0.5 ml (CareOne Insulin Syringes/ 30G X 1/2 " 0.5 ml) 1 Mis Mis, 1 EA .ROUTE DIRECTED for Blood Sugar Management, #1 BOX Prov:Carlos Caldwell MD 04/16/17 Insulin Pen Needle/Carefine 30Gx 30G X 8 mm (Carefine Pen [place] 30Gx 30G X 8 mm) 1 Mis Mis, 1 BOX .ROUTE DIRECTED Y for 3, #2 BOX 0 Refills Prov:Carlos Caldwell MD 04/16/17 Blood Glucose Test Strips (Blood Glucose Test Strips) Strips Strip, 1 EA .ROUTE DIRECTED for Blood Sugar Management, #1000 BOX 0 Refills Prov:Carlos Caldwell MD 04/16/17 Martha Contour Blood Gluco W/Device (Martha Contour Blood Gluco W/Device) 1 Kit Kit, 1 KIT .ROUTE DIRECTED for Blood Sugar Management, #1 KIT 0 Refills Prov:Carlos Caldwell MD 04/16/17 Current Medications Medications (Trade) Dose Ordered Sig/Kathy Route Start Time Stop Time Status Last Admin (Atarax) 50 mg Q6H PRN PO 07/15/17 02:30 (Tylenol) 650 mg Q4H PRN PO 07/15/17 02:30 (Milk Of Magnesia Liq) 30 ml DAILY PRN PO 07/15/17 02:30 (Mag-Al Plus Susp Liq) 30 ml Q6H PRN PO 07/15/17 02:30 (SEROquel) 12.5 mg BID@09,12 PO 07/16/17 09:00 07/16/17 08:19 (Pill Splitter) 1 ea UNSCH PRN OTHER 07/15/17 15:15 (Levemir Inj) 5 units HS SQ 07/15/17 21:00 07/15/17 20:34 (D50w (Syr) Inj) 50 ml UNSCH PRN IV PUSH 07/15/17 16:15 (Glucagon Inj) 1 mg UNSCH PRN OTHER 07/15/17 16:15 (NovoLOG SUPPLEMENTAL SCALE) 1 ACHS SLIDING SCALE SQ 07/15/17 17:00 07/15/17 20:34 (Ecotrin Ec) 81 mg DAILY PO 07/16/17 09:00 07/16/17 08:19 (Lipitor) 10 mg HS PO 07/15/17 21:00 07/15/17 20:33 (Vasotec) 5 mg DAILY PO 07/16/17 09:00 (Glucophage) 1,000 mg BIDPC PO 07/15/17 18:00 07/16/17 08:19 (Catapres) 0.1 mg Q6H PRN PO 07/15/17 16:15 Patient's Strengths (min. 2) Supported her son, Physical Exam Vital Signs Vital Signs Date Time Temp Pulse Resp B/P (MAP) Pulse Ox O2 Delivery O2 Flow Rate FiO2 07/16/17 05:31 97.5 59 16 109/54 (72) 96 07/15/17 01:12 Room Air I/O 07/16/17 07/16/17 07/17/17 08:00 16:00 00:00 Intake Total 0 ml 360 ml Balance 0 ml 360 ml Lab Results Test 07/16/17 09:31 Blood Urea Nitrogen 19 MG/DL Creatinine 0.69 MG/DL Random Glucose 255 MG/DL Calcium Level 9.7 MG/DL Sodium Level 134 MEQ/L Potassium Level 3.6 MEQ/L Chloride Level 97 MEQ/L Carbon Dioxide Level 29.4 MEQ/L Anion Gap 8 MEQ/L Estimat Glomerular Filtration Rate 81 ML/MIN Triglycerides Level 137 MG/DL Cholesterol Level 182 MG/DL LDL Cholesterol 73 MG/DL HDL Cholesterol 82.1 MG/DL Cholesterol/HDL Ratio 2.21 RATIO Free Thyroxine 0.96 NG/DL Thyroid Stimulating Hormone 3rd Gen 4.080 uIU/ML Mental Status Examination Appearance: Appropriate Consciousness: Alert Orientation: Person, Place, Date/Time Motor Activity: Normal gait Speech: Unremarkable Language: Adequate Fund of Knowledge: Inadequate Attention and Concentration: Adequate Memory: Impaired Mood: Appropriate Affect: Appropriate Thought Process & Associations: Intact Thought Content: Appropriate Hallucination Type: Auditory Delusion Type: Paranoid Suicidal Ideation: No Suicidal Plan: No Suicidal Intention: No Homicidal Ideation: No Homicidal Plan: No Homicidal Intention: No Insight: Poor Judgment: Impulsive Assessment & Plan Problem List: (1) Unspecified psychosis ICD Codes: F29 - Unspecified psychosis not due to a substance or known physiological condition Assessment & Plan Patient seen for second opinion. I have seen and examined this patient, reviewed the documentation, discussed with Dr. Tate, I agree and concur with his assessment and plan. Petition for involuntary admission completed. Consult appreciated Carlos Perez MD Jul 16, 2017 12:28
--- NOTE | 2017-07-16 12:28 | PD.PSY.CON ---
Provisional Diagnosis Admission Date Jul 15, 2017 at 00:13 Waldron I. Unspecified psychosis, major neurocognitive disorder, Alzheimer's type Waldron II. Deferred Waldron III. Diabetes, osteoporosis, hypertension Waldron IV. Hopelessness, poor family and social support Waldron V. 30 History of Present Illness Service Psychiatry Consult Requested By Dr. Niko Tate Reason for Consult Second Opinion Primary Care Physician Unknown HPI The patient is a 86-year-old woman, she is from [place], French speaking only, domiciled with her son, retired, , with psychiatric history of dementia, 3 previous psychiatric hospitalizations, no previous suicidal attempts, she's not in psychotropics, medical history diabetes, osteoporosis, hypertension, who presents to the ED for evaluation of psychosis. Per patient she does not know why she is here. Per patient and her son called the police and brought her here. Per patient she's never been [place] acted her having any psychiatric illness. She states that she has a history of hypertension and diabetes. Documentation was reviewed, case discussed with nurses and staff. On psychiatric evaluation today patient is calm, proficiently cooperative and pleasant. Patient is very poor historian due to her level of dementia. He does not know the reason of her hospitalization. Patient says that she is here "because my son brought me due to up pain in the legs". Patient is requesting to go back home with her son. She reports good mood, she says that she feels happy, denies depression, denies anxiety, denies jakob and psychosis. She denies suicidal and homicidal ideation, she denies visual and auditory hallucinations. Patient knows that she is in the hospital, doesn't know the name, doesn't know the town or the state. Patient is oriented in time, she says that is July 15, 2017. She does not know who was the president. As per nurse in charge, patient today has been agitated, not aggressive, but hours ago she was Anxious stating that a man in a glass window was trying to talk to her, when there was nobody there. I spoke with her son, Julio Cesar killian , who explains that he decided to bring his mother to the hospital, because she has been frequently agitated at home, becoming aggressive, more disorganized than before. He says that she has been having visual hallucinations of people coming inside her room and inside her house. She also becomes paranoid looking at the window and screaming stating that people are out watching at her and following her. He says that they just got to a point where he doesn't feel safe taking care of her anymore. They live in a small apartment and he doesn't feel that is a great jakob to continue taking care of his mother alone. He says that his mother has been hospitalized in psychiatry 3 times in the past, one in [place], to [facility] due to a very similar episode. 07/16/17 Patient seen for second opinion. Patient is a 6-year-old woman from [place], recently moved to [place] 4 weeks ago, recently domiciled with son , , spastic psychiatric history of dementia, previous psychiatric hospitalizations, no previous suicide attempts who was brought to the hospital for the having the presenting psychotic symptoms. Patient was found sitting in hospital bed, cooperative interview today. Patient is alert and oriented to person, date, place. Patient states that she was at home, went police had come in. She stated patient states that she does not understand why they had brought her to the hospital. Patient states that she had come to [place] for weeks ago and planned to stay in [place] permanently she reports having sold her house and [place]. Patient states that she had a staying with her son but that he was trying to get her to find her own place as she states her son is currently with section 8 housing and does not allow for her to stay there. Patient believes that the son had called the police due to having been arguing over being told that she needed to buy her own residence. Patient reports that she is feeling "fine", little depressed due to having discord with her son over housing. Patient and endorses auditory hallucination of a person announcing any speaker on the community that she has inherited money and then that she hears this voice telling her that she needs to go find her inheritance. Patient at this time denies any hallucinations at time of interview, denies any SI or HI. Past Family Social History Coded Allergies: No Known Allergies (Unverified , 04/13/17) Active Scripts Atorvastatin (Lipitor) 10 Mg Tab, 10 MG PO HS for Cholesterol Management, #30 TAB 0 Refills Prov:Carlos Caldwell MD 04/16/[address] (Aspirin EC) 81 Mg Tabdr, 81 MG PO DAILY for Prevent Blood Clot, #30 TAB 0 Refills Prov:Carlos Caldwell MD 04/16/17 Enalapril (Enalapril) 5 Mg Tab, 5 MG PO DAILY for Blood Pressure Management, # 30 TAB 3 Refills Prov:Carlos Caldwell MD 04/16/17 Metformin (Glucophage) 500 Mg Tab, 1000 MG PO BIDPC for Blood Sugar Management, #60 TAB 3 Refills Prov:Carlos Caldwell MD 04/16/17 Reported Medications Naproxen (Naprosyn) 500 Mg Tab, 500 MG PO BID, #60 TAB 0 Refills 07/14/17 Omeprazole (Omeprazole) 40 Mg Cap, 40 MG PO DAILY, #30 CAP 0 Refills 07/14/17 Mirtazapine (Remeron) 15 Mg Tab, 15 MG PO HS for Depression Control, #30 TAB 0 Refills 07/14/17 Discontinued Scripts CareOne Insulin Syringes/ 30G X 1/2" 0.5 ml (CareOne Insulin Syringes/ 30G X 1/2 " 0.5 ml) 1 Mis Mis, 1 EA .ROUTE DIRECTED for Blood Sugar Management, #1 BOX Prov:Carlos Caldwell MD 04/16/17 Insulin Pen Needle/Carefine 30Gx 30G X 8 mm (Carefine Pen [place] 30Gx 30G X 8 mm) 1 Mis Mis, 1 BOX .ROUTE DIRECTED Y for 3, #2 BOX 0 Refills Prov:Carlos Caldwell MD 04/16/17 Blood Glucose Test Strips (Blood Glucose Test Strips) Strips Strip, 1 EA .ROUTE DIRECTED for Blood Sugar Management, #1000 BOX 0 Refills Prov:Carlos Caldwell MD 04/16/17 Martha Contour Blood Gluco W/Device (Martha Contour Blood Gluco W/Device) 1 Kit Kit, 1 KIT .ROUTE DIRECTED for Blood Sugar Management, #1 KIT 0 Refills Prov:Carlos Caldwell MD 04/16/17 Current Medications Medications (Trade) Dose Ordered Sig/Kathy Route Start Time Stop Time Status Last Admin (Atarax) 50 mg Q6H PRN PO 07/15/17 02:30 (Tylenol) 650 mg Q4H PRN PO 07/15/17 02:30 (Milk Of Magnesia Liq) 30 ml DAILY PRN PO 07/15/17 02:30 (Mag-Al Plus Susp Liq) 30 ml Q6H PRN PO 07/15/17 02:30 (SEROquel) 12.5 mg BID@09,12 PO 07/16/17 09:00 07/16/17 08:19 (Pill Splitter) 1 ea UNSCH PRN OTHER 07/15/17 15:15 (Levemir Inj) 5 units HS SQ 07/15/17 21:00 07/15/17 20:34 (D50w (Syr) Inj) 50 ml UNSCH PRN IV PUSH 07/15/17 16:15 (Glucagon Inj) 1 mg UNSCH PRN OTHER 07/15/17 16:15 (NovoLOG SUPPLEMENTAL SCALE) 1 ACHS SLIDING SCALE SQ 07/15/17 17:00 07/15/17 20:34 (Ecotrin Ec) 81 mg DAILY PO 07/16/17 09:00 07/16/17 08:19 (Lipitor) 10 mg HS PO 07/15/17 21:00 07/15/17 20:33 (Vasotec) 5 mg DAILY PO 07/16/17 09:00 (Glucophage) 1,000 mg BIDPC PO 07/15/17 18:00 07/16/17 08:19 (Catapres) 0.1 mg Q6H PRN PO 07/15/17 16:15 Patient's Strengths (min. 2) Supported her son, Physical Exam Vital Signs Vital Signs Date Time Temp Pulse Resp B/P (MAP) Pulse Ox O2 Delivery O2 Flow Rate FiO2 07/16/17 05:31 97.5 59 16 109/54 (72) 96 07/15/17 01:12 Room Air I/O 07/16/17 07/16/17 07/17/17 08:00 16:00 00:00 Intake Total 0 ml 360 ml Balance 0 ml 360 ml Lab Results Test 07/16/17 09:31 Blood Urea Nitrogen 19 MG/DL Creatinine 0.69 MG/DL Random Glucose 255 MG/DL Calcium Level 9.7 MG/DL Sodium Level 134 MEQ/L Potassium Level 3.6 MEQ/L Chloride Level 97 MEQ/L Carbon Dioxide Level 29.4 MEQ/L Anion Gap 8 MEQ/L Estimat Glomerular Filtration Rate 81 ML/MIN Triglycerides Level 137 MG/DL Cholesterol Level 182 MG/DL LDL Cholesterol 73 MG/DL HDL Cholesterol 82.1 MG/DL Cholesterol/HDL Ratio 2.21 RATIO Free Thyroxine 0.96 NG/DL Thyroid Stimulating Hormone 3rd Gen 4.080 uIU/ML Mental Status Examination Appearance: Appropriate Consciousness: Alert Orientation: Person, Place, Date/Time Motor Activity: Normal gait Speech: Unremarkable Language: Adequate Fund of Knowledge: Inadequate Attention and Concentration: Adequate Memory: Impaired Mood: Appropriate Affect: Appropriate Thought Process & Associations: Intact Thought Content: Appropriate Hallucination Type: Auditory Delusion Type: Paranoid Suicidal Ideation: No Suicidal Plan: No Suicidal Intention: No Homicidal Ideation: No Homicidal Plan: No Homicidal Intention: No Insight: Poor Judgment: Impulsive Assessment & Plan Problem List: (1) Unspecified psychosis ICD Codes: F29 - Unspecified psychosis not due to a substance or known physiological condition Assessment & Plan Patient seen for second opinion. I have seen and examined this patient, reviewed the documentation, discussed with Dr. Tate, I agree and concur with his assessment and plan. Petition for involuntary admission completed. Consult appreciated Carlos Perez MD Jul 16, 2017 12:28
--- NOTE | 2017-07-16 14:36 | HHI.PYPN ---
Subjective Remarks Patient was seen today for psychiatric reevaluation along with nursing charge Jennifer. Patient is found in the recreational area of the unit having her breakfast. Patient reported that she is very concerned "because my son has been very sick and a have to go back home to take care of him". Patient is insistent in be discharged back home. She reports good mood, she is in a good spirit, smiling very often, denies depressive symptoms, she is disoriented in place and time. She does not seem to be internally stimulated at this moment, no paranoia or active visual hallucinations present. She is compliant with her medications, no significant side effects. Review of Systems Except as stated in HPI: all other systems reviewed are Neg Mental Status Examination Appearance: Appropriate Consciousness: Alert Orientation: Person, Place Motor Activity: Normal gait Speech: Unremarkable Language: Adequate Fund of Knowledge: Inadequate Attention and Concentration: Adequate Memory: Impaired Mood: Appropriate Affect: Appropriate Thought Process & Associations: Intact Thought Content: Appropriate Hallucination Type: Visual Delusion Type: Paranoid Suicidal Ideation: No Suicidal Plan: No Suicidal Intention: No Homicidal Ideation: No Homicidal Plan: No Homicidal Intention: No Insight: Poor Judgment: Impulsive Results Labs Test 07/16/17 09:31 Blood Urea Nitrogen 19 MG/DL Creatinine 0.69 MG/DL Random Glucose 255 MG/DL Calcium Level 9.7 MG/DL Sodium Level 134 MEQ/L Potassium Level 3.6 MEQ/L Chloride Level 97 MEQ/L Carbon Dioxide Level 29.4 MEQ/L Anion Gap 8 MEQ/L Estimat Glomerular Filtration Rate 81 ML/MIN Triglycerides Level 137 MG/DL Cholesterol Level 182 MG/DL LDL Cholesterol 73 MG/DL HDL Cholesterol 82.1 MG/DL Cholesterol/HDL Ratio 2.21 RATIO Free Thyroxine 0.96 NG/DL Thyroid Stimulating Hormone 3rd Gen 4.080 uIU/ML Vitals/IOs Vital Signs Date Time Temp Pulse Resp B/P (MAP) Pulse Ox O2 Delivery O2 Flow Rate FiO2 07/16/17 05:31 97.5 59 16 109/54 (72) 96 07/15/17 01:12 Room Air Intake and Output 07/16/17 07/16/17 07/17/17 08:00 16:00 00:00 Intake Total 0 ml 360 ml Balance 0 ml 360 ml Assessment & Plan Problem List: (1) Unspecified psychosis ICD Codes: F29 - Unspecified psychosis not due to a substance or known physiological condition Assessment & Plan: Brief supportive psychotherapy provided. Recommendation from hospitalist provided. Second opinion from Dr. Perez appreciated. Continue current psychotropic regimen. Assessment & Plan Estimated LOS: days Justification for Cont. Inpt. Patient has an increased risk to decompensate at a lower level of care. Niko Tate MD Jul 16, 2017 14:36
--- NOTE | 2017-07-16 15:10 | HHI.PR ---
Addendum to Inpatient Note Addendum Reason: Additional Documentation Additional Information I have decreased enalapril to 2.5mg po daily w holding parameters. Pt has a Hb A1C >10 therefore needs renal protection. Nadeen Argueta MD Jul 16, 2017 15:10
[2017-07-16 15:56] LABS: HEMOGLOBIN A1C 11.5 % (4.3-6.0)
--- NOTE | 2017-07-16 16:15 | HHI.PR ---
Subjective Remarks I evaluated the pt, she has no complaints, doing well. no pain, nausea or vomiting Objective Vitals Vital Signs Date Time Temp Pulse Resp B/P (MAP) Pulse Ox O2 Delivery O2 Flow Rate FiO2 07/16/17 05:31 97.5 59 16 109/54 (72) 96 07/15/17 17:41 97.5 52 15 164/71 (102) 100 I/O 07/15/17 07/15/17 07/15/17 07/16/17 07/16/17 07/16/17 07:00 15:00 23:00 07:00 15:00 23:00 Intake Total 120 ml 360 ml 840 ml 0 ml 360 ml Balance 120 ml 360 ml 840 ml 0 ml 360 ml Intake Oral 120 ml 360 ml 840 ml 0 ml 360 ml # Voids 4 3 Result Diagram: 07/14/17 1749 07/16/17 0931 Imaging Last Impressions Head CT 07/14/17 0000 Signed Impressions: Service Date/Time: Friday, July 14, 2017 18:41 - CONCLUSION: Slight atrophic and small vessel ischemic changes without any evidence for acute hemorrhage or mass effect. José Longo MD Objective Remarks GENERAL: Elderly female, sitting up on the chair. EYES: Extraocular motions intact. ENT: Airway patent. NECK: Trachea midline. CARDIOVASCULAR: Regular rate and rhythm without murmurs RESPIRATORY: Clear to auscultation. Breath sounds equal bilaterally. No wheezes GASTROINTESTINAL: Abdomen soft, non-tender, nondistended. MUSCULOSKELETAL: Extremities without edema. Negative Homans sign bilaterally. PSYCH: calm A/P Assessment and Plan dementia/agitation/visual and auditory hallucinations: management per psych DM: on 5 units of levemir at bedtime, continue w low dose insuline sliding scale , BS better controlled. Continue to adjust dose of levemir as needed. monitor accuchecks HTN:stable. I have decreased dose of enalapril to 2.5mg po daily (mainly for kidney protection as BPs controlled). added clonidine prn for SBP>180 hyperlipidemia: on atorvastatin. Discharge Planning per primary team Nadeen Argueta MD Jul 16, 2017 16:15
[2017-07-16 18:14] VITALS: BP 126/57; PULSE 54; RESP 16; TEMP 97.5; O2SAT 94
[2017-07-16] MEDS: ATORVASTATIN 10 MG TAB PO SCH (21:11)
[2017-07-16] MEDS: INSULIN DETEMIR 100 UNITS/ML VIAL SQ SCH (21:11)
[2017-07-17 06:15] VITALS: BP 129/59; PULSE 50; RESP 17; TEMP 96.9; O2SAT 94
[2017-07-17] MEDS: INSULIN ASPART SUPPLEMENTAL SCALE SQ SCH ×4 (08:00→21:39)
[2017-07-17] MEDS: ASPIRIN EC 81 MG TABEC PO SCH (08:42)
[2017-07-17] MEDS: metFORMIN HCL 500 MG TAB PO SCH ×2 (08:43→18:13)
[2017-07-17] MEDS: QUEtiapine FUMARATE 25 MG TAB PO SCH ×2 (08:43→13:37)
[2017-07-17] MEDS: ENALAPRIL MALEATE 5 MG TAB PO SCH (09:00)
--- NOTE | 2017-07-17 14:32 | HHI.PYPN ---
Subjective Remarks Patient was seen today for psychiatric reevaluation, case was discussed with nurse in charge and licensed clinical social worker Pamela, I also met again with her son to discuss discharge planning. Psychiatric evaluation today patient remains pleasantly confused, patient reports feeling really good, at times sad because she wanted go back home. Patient is just oriented in person, she knows that she is in the hospital, but she doesn't know the name, she thinks that we are in 1973. The moment of the evaluation no prominent psychotic symptoms, such as paranoia, delusions of reference, dictation, aggressive behavior, disorganization are present. She is compliant with medications, no significant side effects. Review of Systems Except as stated in HPI: all other systems reviewed are Neg Mental Status Examination Appearance: Appropriate Consciousness: Alert Orientation: Person, Place Motor Activity: Normal gait Speech: Unremarkable Language: Adequate Fund of Knowledge: Inadequate Attention and Concentration: Adequate Memory: Impaired Mood: Appropriate Affect: Appropriate Thought Process & Associations: Intact Thought Content: Appropriate Hallucination Type: Visual Delusion Type: Paranoid Suicidal Ideation: No Suicidal Plan: No Suicidal Intention: No Homicidal Ideation: No Homicidal Plan: No Homicidal Intention: No Insight: Poor Judgment: Impulsive Results Vitals/IOs Vital Signs Date Time Temp Pulse Resp B/P (MAP) Pulse Ox O2 Delivery O2 Flow Rate FiO2 07/17/17 06:15 96.9 50 17 129/59 (82) 94 07/15/17 01:12 Room Air Intake and Output 07/17/17 07/17/17 07/18/17 08:00 16:00 00:00 Intake Total 0 ml 720 ml Balance 0 ml 720 ml Assessment & Plan Problem List: (1) 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 Inpt. Patient has an elevated risk to decompensate at a lower level of care. Continue current psychotropic regimen. Niko Tate MD Jul 17, 2017 14:32
--- NOTE | 2017-07-17 16:29 | HHI.PR ---
Subjective Remarks Follow-up for medical management Patient is Icelandic-speaking tech was at the table to translate. Patient had no complaints. She did mention that she has chronic left knee pain. She stated that medication helps with pain. Denies any pain currently. She has no complaints. Objective Vitals Vital Signs Date Time Temp Pulse Resp B/P (MAP) Pulse Ox O2 Delivery O2 Flow Rate FiO2 07/17/17 06:15 96.9 50 17 129/59 (82) 94 07/16/17 18:14 97.5 54 16 126/57 (80) 94 I/O 07/16/17 07/16/17 07/16/17 07/17/17 07/17/17 07/17/17 07:00 15:00 23:00 07:00 15:00 23:00 Intake Total 0 ml 360 ml 600 ml 0 ml 720 ml Balance 0 ml 360 ml 600 ml 0 ml 720 ml Intake Oral 0 ml 360 ml 600 ml 0 ml 720 ml # Voids 3 2 2 Result Diagram: 07/14/17 1749 07/16/17 0931 Objective Remarks GENERAL: in NAD SKIN: Warm and dry. HEAD: Normocephalic. EYES: No scleral icterus. No injection or drainage. NECK: Supple, trachea midline. No JVD or lymphadenopathy. CARDIOVASCULAR: Regular rate and rhythm without murmurs, gallops, or rubs. RESPIRATORY: Breath sounds equal bilaterally. No accessory muscle use. GASTROINTESTINAL: Abdomen soft, non-tender, nondistended. MUSCULOSKELETAL: No cyanosis, or edema. BACK: Nontender without obvious deformity. No CVA tenderness. Medications and IVs Current Medications Insulin Human Regular (NovoLIN R INJ) 6 units ONCE ONCE SQ Last administered on 07/14/17t 19:15; Start 07/14/17 at 19:15; Stop 07/14/17 at 19:16; Status DC Hydroxyzine HCl (Atarax) 50 mg Q6H PRN PO ANXIETY; Start 07/15/17 at 02:30 Acetaminophen (Tylenol) 650 mg Q4H PRN PO Pain 1-5 or Temp >101F; Start at 02:30 Magnesium Hydroxide (Milk Of Magnesia Liq) 30 ml DAILY PRN PO CONSTIPATION; Start 07/15/17 at 02:30 Al Hydrox/Mg Hydrox/Simethicone (Mag-Al Plus Susp Liq) 30 ml Q6H PRN PO DYSPEPSIA; Start 07/15/17 at 02:30 Aspirin (Aspirin Chew) 81 mg DAILY PO Last administered on 07/15/17 09:38; Start 07/15/17 at 09:00; Stop 07/15/17 at 17:49; Status DC Atorvastatin Calcium (Lipitor) 10 mg HS PO ; Start 07/15/17 at 21:00; Stop at 21:00; Status DC Enalapril Maleate (Vasotec) 5 mg DAILY PO Last administered on 07/15/17 09:38 ; Start 07/15/17 at 09:00; Stop 07/15/17 at 17:49; Status DC Metformin HCl (Glucophage) 1,000 mg BIDPC PO Last administered on 07/15/17 09 :38; Start 07/15/17 at 09:00; Stop 07/15/17 at 17:49; Status DC Quetiapine Fumarate (SEROquel) 12.5 mg BID@09,12 PO Last administered on 13:37; Start 07/16/17 at 09:00 Miscellaneous (Pill Splitter) 1 ea UNSCH PRN OTHER SEE LABEL COMMENTS; Start 07/15/17 at 15:15 Insulin Detemir (Levemir Inj) 5 units HS SQ Last administered on 07/16/17 21: 11; Start 07/15/17 at 21:00 Dextrose (D50w (Syr) Inj) 50 ml UNSCH PRN IV PUSH HYPOGLYCEMIA-SEE COMMENTS; Start 07/15/17 at 16:15 Glucagon (Glucagon Inj) 1 mg UNSCH PRN OTHER HYPOGLYCEMIA-SEE COMMENTS; Start 07/15/17 at 16:15 Insulin Aspart (NovoLOG SUPPLEMENTAL SCALE) 1 ACHS SLIDING SCALE SQ Last administered on 07/17/17 12:00; Start 07/15/17 at 17:00 Aspirin (Ecotrin Ec) 81 mg DAILY PO Last administered on 07/17/17 08:42; Start 07/16/17 at 09:00 Atorvastatin Calcium (Lipitor) 10 mg HS PO Last administered on 07/16/17 21: 11; Start 07/15/17 at 21:00 Enalapril Maleate (Vasotec) 5 mg DAILY PO ; Start 07/16/17 at 09:00; Stop at 15:08; Status DC Metformin HCl (Glucophage) 1,000 mg BIDPC PO Last administered on 07/17/17 08 :43; Start 07/15/17 at 18:00 Clonidine (Catapres) 0.1 mg Q6H PRN PO SYS BP GREATER THAN 180 MMHG; Start at 16:15 Enalapril Maleate (Vasotec) 2.5 mg DAILY PO Last administered on 07/17/17 09: 00; Start 07/17/17 at 09:00 A/P Assessment and Plan dementia/agitation/visual and auditory hallucinations: management per psych DM: on 5 units of levemir at bedtime, continue w low dose insuline sliding scale , BS better controlled. Continue to adjust dose of levemir as needed. monitor accuchecks HTN:stable. Patient is on enalapril to 2.5mg po daily (mainly for kidney protection as BPs controlled). added clonidine prn for SBP>180 hyperlipidemia: on atorvastatin. Chronic left knee pain -Stable current regimen. Brooke Shrestha MD Jul 17, 2017 16:29
[2017-07-17 18:17] VITALS: BP 107/56; PULSE 64; RESP 18; TEMP 97.5; O2SAT 98
[2017-07-17] MEDS: ATORVASTATIN 10 MG TAB PO SCH (21:38)
[2017-07-17] MEDS: INSULIN DETEMIR 100 UNITS/ML VIAL SQ SCH (21:39)
[2017-07-18 06:00] VITALS: BP 126/60; PULSE 47; RESP 17; TEMP 97.7; O2SAT 94
[2017-07-18] MEDS: INSULIN ASPART SUPPLEMENTAL SCALE SQ SCH ×4 (08:00→21:36)
[2017-07-18] MEDS: metFORMIN HCL 500 MG TAB PO SCH ×2 (08:22→17:09)
[2017-07-18] MEDS: QUEtiapine FUMARATE 25 MG TAB PO SCH ×2 (08:22→11:10)
[2017-07-18] MEDS: ENALAPRIL MALEATE 5 MG TAB PO SCH (08:22)
[2017-07-18] MEDS: ASPIRIN EC 81 MG TABEC PO SCH (08:22)
--- NOTE | 2017-07-18 13:00 | HHI.PYPN ---
Subjective Remarks Patient was seen and case discussed with nursing. Patient is pleasant and cooperative with exam. She is alert and oriented 2. Interviewed in bed. Psychosis appears to be improving. She no longer thinks her son is and believes that he is at home. She denies auditory visual hallucinations. Insight remains poor however. She is concerned about mild hip pain. Vital signs were reviewed and patient has been bradycardic Mental Status Examination Appearance: Appropriate Consciousness: Alert Orientation: Person, Place Motor Activity: Normal gait Speech: Unremarkable Language: Adequate Fund of Knowledge: Inadequate Attention and Concentration: Adequate Memory: Impaired Mood: Appropriate Affect: Appropriate Thought Process & Associations: Intact Thought Content: Appropriate Hallucination Type: Visual (denies today) Delusion Type: Paranoid (not elicited today) Suicidal Ideation: No Suicidal Plan: No Suicidal Intention: No Homicidal Ideation: No Homicidal Plan: No Homicidal Intention: No Insight: Poor Judgment: Poor Results Vitals/IOs Vital Signs Date Time Temp Pulse Resp B/P (MAP) Pulse Ox O2 Delivery O2 Flow Rate FiO2 07/18/17 06:00 97.7 47 17 126/60 (82) 94 07/15/17 01:12 Room Air Intake and Output 07/18/17 07/18/17 07/19/17 08:00 16:00 00:00 Intake Total 360 ml 360 ml Balance 360 ml 360 ml Assessment & Plan Problem List: (1) 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 Inpt. Patient would decompensate in a less restrictive setting Venancio Campos DO Jul 18, 2017 13:00
[2017-07-18 20:48] VITALS: BP 123/62; PULSE 63; RESP 18; TEMP 98; O2SAT 99
[2017-07-18] MEDS: INSULIN DETEMIR 100 UNITS/ML VIAL SQ SCH (21:35)
[2017-07-18] MEDS: ATORVASTATIN 10 MG TAB PO SCH (21:36)
[2017-07-19 06:25] VITALS: BP 118/66; PULSE 55; RESP 16; TEMP 98.2; O2SAT 97
[2017-07-19] MEDS: INSULIN ASPART SUPPLEMENTAL SCALE SQ SCH ×4 (07:31→20:28)
[2017-07-19] MEDS: ASPIRIN EC 81 MG TABEC PO SCH (08:36)
[2017-07-19] MEDS: ENALAPRIL MALEATE 5 MG TAB PO SCH (08:37)
[2017-07-19] MEDS: QUEtiapine FUMARATE 25 MG TAB PO SCH ×2 (08:37→11:30)
[2017-07-19] MEDS: metFORMIN HCL 500 MG TAB PO SCH ×2 (08:37→17:19)
--- NOTE | 2017-07-19 10:57 | HHI.PYPN ---
Subjective Remarks Patient was seen and case discussed with nursing. Patient is pleasant and cooperative with exam. Interview conducted in bed. Patient is alert and oriented 2. Insight remains poor. Today she is adamant that her son is sick and she is the only one that can help him. Mental Status Examination Appearance: Appropriate Consciousness: Alert Orientation: Person, Place Motor Activity: Normal gait Speech: Unremarkable Language: Adequate Fund of Knowledge: Inadequate Attention and Concentration: Adequate Memory: Impaired Mood: Appropriate Affect: Appropriate Thought Process & Associations: Intact Thought Content: Delusional (son is sick) Hallucination Type: Visual (denies today) Delusion Type: Paranoid (not elicited today) Suicidal Ideation: No Suicidal Plan: No Suicidal Intention: No Homicidal Ideation: No Homicidal Plan: No Homicidal Intention: No Insight: Poor Judgment: Poor Results Vitals/IOs Vital Signs Date Time Temp Pulse Resp B/P (MAP) Pulse Ox O2 Delivery O2 Flow Rate FiO2 07/19/17 06:25 98.2 55 16 118/66 (83) 97 Intake and Output 07/19/17 07/19/17 07/20/17 08:00 16:00 00:00 Intake Total 0 ml 240 ml Balance 0 ml 240 ml Assessment & Plan Problem List: (1) 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 Inpt. Patient would decompensate in a less restrictive setting Venancio Campos DO Jul 19, 2017 10:57
--- NOTE | 2017-07-19 15:14 | HHI.PR ---
Subjective Remarks Patient had no complaints. She denies any pain. Objective Vitals Vital Signs Date Time Temp Pulse Resp B/P (MAP) Pulse Ox O2 Delivery O2 Flow Rate FiO2 07/19/17 06:25 98.2 55 16 118/66 (83) 97 07/18/17 20:48 98.0 63 18 123/62 (82) 99 I/O 07/18/17 07/18/17 07/18/17 07/19/17 07/19/17 07/19/17 07:00 15:00 23:00 07:00 15:00 23:00 Intake Total 0 ml 1440 ml 480 ml 600 ml 480 ml Balance 0 ml 1440 ml 480 ml 600 ml 480 ml Intake Oral 0 ml 1440 ml 480 ml 600 ml 480 ml # Voids 1 1 2 # Bowel Movements 0 0 Result Diagram: 07/16/17 0931 Objective Remarks GENERAL: in NAD SKIN: Warm and dry. HEAD: Normocephalic. EYES: No scleral icterus. No injection or drainage. NECK: Supple, trachea midline. No JVD or lymphadenopathy. CARDIOVASCULAR: Regular rate and rhythm without murmurs, gallops, or rubs. RESPIRATORY: Breath sounds equal bilaterally. No accessory muscle use. GASTROINTESTINAL: Abdomen soft, non-tender, nondistended. MUSCULOSKELETAL: No cyanosis, or edema. BACK: Nontender without obvious deformity. No CVA tenderness. Medications and IVs Reported Meds & Active Scripts Active Lipitor (Atorvastatin Calcium) 10 Mg Tab 10 Mg PO HS Aspirin EC (Aspirin) 81 Mg Tabdr 81 Mg PO DAILY Enalapril (Enalapril Maleate) 5 Mg Tab 5 Mg PO DAILY Glucophage (Metformin HCl) 500 Mg Tab 1,000 Mg PO BIDPC Reported Naprosyn (Naproxen) 500 Mg Tab 500 Mg PO BID Omeprazole 40 Mg Cap 40 Mg PO DAILY Remeron (Mirtazapine) 15 Mg Tab 15 Mg PO HS A/P Assessment and Plan dementia/agitation/visual and auditory hallucinations: management per psych DM: on 5 units of levemir at bedtime, continue w low dose insuline sliding scale , BS better controlled. Continue to adjust dose of levemir as needed. monitor accuchecks HTN:stable. Patient is on enalapril to 2.5mg po daily (mainly for kidney protection as BPs controlled). added clonidine prn for SBP>180 Bradycardia, asymptomatic. -Already evaluated by adjunct faculty for medical terminology. Stated to continue medical management and no intervention recommended at the moment. hyperlipidemia: on atorvastatin. Chronic left knee pain -Stable current regimen. Brooke Shrestha MD Jul 19, 2017 15:14
[2017-07-19 18:20] VITALS: BP 142/62; PULSE 58; RESP 17; TEMP 98.8; O2SAT 98
[2017-07-19] MEDS: INSULIN DETEMIR 100 UNITS/ML VIAL SQ SCH (20:28)
[2017-07-19] MEDS: ATORVASTATIN 10 MG TAB PO SCH (20:29)
--- NOTE | 2017-07-19 20:54 | EKG ---
Date Performed: 07/18/2017 Time Performed: 13:22:42 PTAGE: 86 years EKG: SINUS BRADYCARDIA WITH FIRST DEGREE AV BLOCK MARKED LEFT AXIS DEVIATION MODERATE VOLTAGE CR ITERIA FOR LVH, CONSIDER NORMAL VARIANT ABNORMAL ECG PREVIOUS TRACING : 04/14/2017 03.19 DOCTOR: Precious Duong Interpretating Date/Time 07/19/2017 20:48:19
[2017-07-20 05:33] VITALS: BP 114/56; PULSE 56; RESP 17; TEMP 97.7
[2017-07-20] MEDS: INSULIN ASPART SUPPLEMENTAL SCALE SQ SCH ×2 (08:11→11:43)
[2017-07-20] MEDS: metFORMIN HCL 500 MG TAB PO SCH (08:39)
[2017-07-20] MEDS: ASPIRIN EC 81 MG TABEC PO SCH (08:39)
[2017-07-20] MEDS: QUEtiapine FUMARATE 25 MG TAB PO SCH (08:39)
[2017-07-20] MEDS: INSULIN DETEMIR 100 UNITS/ML VIAL SQ SCH (08:40)
[2017-07-20] MEDS: ENALAPRIL MALEATE 5 MG TAB PO SCH (08:43)
[2017-07-20] MEDS ORDERED: LIPI10TA PO (09:02)
[2017-07-20] MEDS ORDERED: QUET1TAB7 PO (09:02)
[2017-07-20] MEDS ORDERED: REME15TA PO (09:02)
--- NOTE | 2017-07-20 13:21 | HHI.DS ---
Psychiatry Discharge Summary Inpatient Psychiatric care?: Yes Advance Directive: No Reason Not Provided: Due to Patient Condition Mental Health AdvanceDirective: No Health Care Proxy: No Admission Admission Date Jul 15, 2017 at 00:13 Admission Diagnosis: (1) Unspecified psychosis ICD Code: F29 - Unspecified psychosis not due to a substance or known physiological condition Brief History The patient is a 86-year-old woman, she is from [place], Kazakh speaking only, domiciled with her son, retired, , with psychiatric history of dementia, 3 previous psychiatric hospitalizations, no previous suicidal attempts, she's not in psychotropics, medical history diabetes, osteoporosis, hypertension, who presents to the ED for evaluation of psychosis. Per patient she does not know why she is here. Per patient and her son called the police and brought her here. Per patient she's never been [place] acted her having any psychiatric illness. She states that she has a history of hypertension and diabetes. Documentation was reviewed, case discussed with nurses and staff. On psychiatric evaluation today patient is calm, proficiently cooperative and pleasant. Patient is very poor historian due to her level of dementia. He does not know the reason of her hospitalization. Patient says that she is here "because my son brought me due to up pain in the legs". Patient is requesting to go back home with her son. She reports good mood, she says that she feels happy, denies depression, denies anxiety, denies jakob and psychosis. She denies suicidal and homicidal ideation, she denies visual and auditory hallucinations. Patient knows that she is in the hospital, doesn't know the name, doesn't know the town or the state. Patient is oriented in time, she says that is July 15, 2017. She does not know who was the president. As per nurse in charge, patient today has been agitated, not aggressive, but hours ago she was Anxious stating that a man in a glass window was trying to talk to her, when there was nobody there. I spoke with her son, Julio Cesar killian [phone], who explains that he decided to bring his mother to the hospital, because she has been frequently agitated at home, becoming aggressive, more disorganized than before. He says that she has been having visual hallucinations of people coming inside her room and inside her house. She also becomes paranoid looking at the window and screaming stating that people are out watching at her and following her. He says that they just got to a point where he doesn't feel safe taking care of her anymore. They live in a small apartment and he doesn't feel that is a great jakob to continue taking care of his mother alone. He says that his mother has been hospitalized in psychiatry 3 times in the past, one in [place], to [facility] due to a very similar episode. 07/16/17 Patient seen for second opinion. Patient is a 6-year-old woman from [place], recently moved to [place] 4 weeks ago, recently domiciled with son , , spastic psychiatric history of dementia, previous psychiatric hospitalizations, no previous suicide attempts who was brought to the hospital for the having the presenting psychotic symptoms. Patient was found sitting in hospital bed, cooperative interview today. Patient is alert and oriented to person, date, place. Patient states that she was at home, went police had come in. She stated patient states that she does not understand why they had brought her to the hospital. Patient states that she had come to [place] for weeks ago and planned to stay in [place] permanently she reports having sold her house and [place]. Patient states that she had a staying with her son but that he was trying to get her to find her own place as she states her son is currently with section 8 housing and does not allow for her to stay there. Patient believes that the son had called the police due to having been arguing over being told that she needed to buy her own residence. Patient reports that she is feeling "fine", little depressed due to having discord with her son over housing. Patient and endorses auditory hallucination of a person announcing any speaker on the community that she has inherited money and then that she hears this voice telling her that she needs to go find her inheritance. Patient at this time denies any hallucinations at time of interview, denies any SI or HI. Tobacco Use In Past 30 Days: No Tobacco Past 30 Days Alcohol Use: Never Hospital Course She was admitted to the geriatric unit 2500 due to dementia with neuropsychiatric symptoms consistent on paranoia and visual hallucinations. After a complete psychosocial and psychiatric assessment, safety measures were taken, patient was started in low dose of Seroquel for psychosis. She was also started in individual and group therapy. She responded excellently to the combination of milieu and antipsychotic. As per millimeter with her son, was determined that the patient was not safe to go back to work she was living before, and she was discharged to a long-term. During the hospitalization patient was initially calm, cooperative, pleasantly confused. She was a happy camper in the unit. No agitation or aggressive behavior reported. Results Blood Pressure 114 / 56 Vital Signs Date Time Temp Pulse Resp B/P (MAP) Pulse Ox O2 Delivery O2 Flow Rate FiO2 07/20/17 05:33 97.7 56 17 114/56 (75) 07/19/17 18:20 98 Laboratory Results Test 07/16/17 09:31 Cholesterol Level 182 MG/DL (120-200) HDL Cholesterol 82.1 MG/DL (40.0-60.0) Hemoglobin A1c 11.5 % (4.3-6.0) LDL Cholesterol 73 MG/DL (0-99) Triglycerides Level 137 MG/DL (42-150) Summary of Procedures None Imaging Last Impressions Head CT 07/14/17 0000 Signed Impressions: Service Date/Time: Friday, July 14, 2017 18:41 - CONCLUSION: Slight atrophic and small vessel ischemic changes without any evidence for acute hemorrhage or mass effect. José Longo MD Pending results at discharge: No Medications # of Antipsychotic meds at D/C: 1 Approp Antipsych med options 1 - Minimum of three failed multiple trials of monotherapy. 2 - Documented plan to taper to monotherapy due to previous use of multiple meds OR cross-taper in progress at D/C. 3 - Documentation of augmentation of Clozapine. 4 - Justification other than those listed in allowable values 1-3, document here : Discharge Discharge Date: Jul 20, 2017 Discharge Diagnosis: (1) Unspecified psychosis Diagnosis: Principal ICD Code: F29 - Unspecified psychosis not due to a substance or known physiological condition Pt Condition on Discharge: Stable Discharge Disposition: Disch w/ Home Health Serv Discharge Instructions Diet Instructions: Heart Healthy Diet Activities you can perform: Weight Bearing as Robert Scheduled Appointment: At Facility Discharge Time > 30 minutes Mental Status Examination Appearance: Appropriate Consciousness: Alert Orientation: Person, Place Motor Activity: Normal gait Speech: Unremarkable Language: Adequate Fund of Knowledge: Inadequate Attention and Concentration: Adequate Memory: Impaired Mood: Appropriate Affect: Appropriate Thought Process & Associations: Intact Thought Content: Delusional (son is sick) Hallucination Type: Visual (denies today) Delusion Type: Paranoid (not elicited today) Suicidal Ideation: No Suicidal Plan: No Suicidal Intention: No Homicidal Ideation: No Homicidal Plan: No Homicidal Intention: No Insight: Poor Judgment: Poor Discharge/Advance Care Plan Health Problems: (1) Unspecified psychosis Goals to promote your health * To prevent worsening of your condition and complications * To maintain your health at the optimal level Directions to meet your goals Take your medications as prescribed Follow your dietary instruction Follow activity as directed Keep your appointments as scheduled Take your immunizations and boosters as scheduled If your symptoms worsen call your PCP, if no PCP go to Urgent Care Center or Emergency Room For 13/04 questions related to your inpatient stay or results of tests pending at discharge, please contact Dr. Niko Tate at Smoking is Dangerous to Your Health. Avoid second hand smoking Niko Tate MD Jul 20, 2017 13:20
--- NOTE | 2017-07-20 14:31 | PD.TTN ---
Patient Problems 1. Discharge planning 2. Medication compliance 3. Knowledge deficit 4. Lack of coping skills Progress Toward Goals Provider Present: Dr. Helder Tate Provider Input: 07/20 patient is stable for discharge to a facility Nurse(s) Input: 07/20 patient has been compliant Psychiatric Counselors Present: Pamela Vicente LCSW Psych Therapist Input: 07/20 arranged discharge to a SNF [facility] for [place] speaking community patient can go today, [id number] and PASSR completed Pamela Vicente LCSW Jul 20, 2017 14:31
--- NOTE | 2017-07-20 14:31 | PD.TTN ---
Patient Problems 1. Discharge planning 2. Medication compliance 3. Knowledge deficit 4. Lack of coping skills Progress Toward Goals Provider Present: Dr. Helder Tate Provider Input: 07/20 patient is stable for discharge to a facility Nurse(s) Input: 07/20 patient has been compliant Psychiatric Counselors Present: Pamela Vicente LCSW Psych Therapist Input: 07/20 arranged discharge to a SNF [facility] for [place] speaking community patient can go today, 3008 and PASSR completed Pamela Vicente LCSW Jul 20, 2017 14:31
== END 2017-07-20 12:15 | disposition home health service (06) | DRG 885 ==
LOC: NEPD 16:39 → NEDA 07-15 00:13 → H250 07-15 01:50
PROVIDERS: ADMIT Psychiatry & Neurology Psychiatry; ATTEND Psychiatry & Neurology Psychiatry
DX: F29 Unspecified psychosis not due to a substance or known physiological condition (principal); R00.1 Bradycardia, unspecified; E11.9 Type 2 diabetes mellitus without complications; Z79.84 Long term (current) use of oral hypoglycemic drugs; I10 Essential (primary) hypertension; M81.0 Age-related osteoporosis without current pathological fracture; E78.5 Hyperlipidemia, unspecified; G89.29 Other chronic pain; M25.562 Pain in left knee
CPT/HCPCS: 70450; 80048; 80053; 80061; 80307; 81001; 82948; 83036; 84439; 84443; 85025; 86592; 93005; 96372; J1815